=== PATIENT | male | born 1970 | race African-American/Black ===

== ENCOUNTER 2019-07-07 10:53 | Inpatient (IN) ==
[2019-07-07] MEDS ORDERED: SODIUM CHLORIDE 0.9% 500 ML IV STA (11:31)
[2019-07-07] MEDS ORDERED: SODIUM CHLORIDE 0.9% 1000ML 1,000 ML IV ONE ×3 (11:42→12:06)
[2019-07-07 11:47] LABS: Basophils # (auto) 0.02 K/uL (0-0.2); Basophils % (auto) 0.2 %; Eosinophils # (auto) 0.01 K/uL (0-0.5); Eosinophils % (auto) 0.1 %; Hematocrit (blood only) 43.7 % (42-52); Hemoglobin 14.2 g/dL (14.0-18.0); Immature Granulocytes # (auto) 0.02 K/uL (0.00-0.02); Immature Granulocytes % (auto) 0.2 %; Lymphocytes # (auto) 0.96 K/uL (1.2-3.4); Lymphocytes % (auto) 9.5 %; Mean Corpuscular Hemoglobin 25.7 pg (25-34); Mean Corpuscular Hgb Conc 32.5 g/dL (32-36); Mean Platelet Volume 12.3 fL (7.4-10.4); Monocytes # (auto) 0.74 K/uL (0.11-0.59); Monocytes % (auto) 7.3 %; Neutrophils # (auto) 8.34 K/uL (1.4-6.5); Neutrophils % (auto) 82.7 %; Platelet Count 235 K/uL (130-400); RDW Coefficient of Variation 15.1 % (11.5-14.5); RDW Standard Deviation 43.2 fL (36.4-46.3); Red Blood Count 5.53 M/uL (4.7-6.1); White Blood Count 10.09 K/uL (4.8-10.8)
[2019-07-07 11:47] LABS: iSTAT Blood Urea Nitrogen 42 mg/dl (7-18); iSTAT Carbon Dioxide 21 mEq/l (24-31); iSTAT Chloride 118 mEq/L (101-112); iSTAT Glucose > 700 mg/dl (70-99); iSTAT Hematocrit 45 % (42-52); iSTAT Hemoglobin 15.3 g/dl (14.0-18.0); iSTAT Ionized Calcium 1.13 mmol/l (1.12-1.32); iSTAT Potassium 5.2 mEq/L (3.3-5.0); iSTAT Sodium 154 mEq/L (135-144)
[2019-07-07 12:03] LABS: Albumin Globulin Ratio 1.1 (0.9-2); Albumin Level 4.1 gm/dl (3.4-5.0); BUN Creatinine Ratio 17.5 (10-20); Bilirubin,Total 0.7 mg/dl (0.2-1); Calcium 9.5 mg/dl (8.5-10.1); Creatinine Clr Calc Pharmacy 36.5 ml/min; Est GFR (Non-African American) 27.6; Globulin 3.7 gm/dl (2.5-4.0); Potassium 5.3 mmol/L (3.5-5.1); Total Protein 7.8 gm/dl (6.4-8.2)
[2019-07-07] MEDS ORDERED: DEXTROSE 50% 50 ML SYRINGE IV PRN (12:18)
[2019-07-07] MEDS ORDERED: HHS GOAL RANGE 250-350 mg/dl ONE (12:18)
[2019-07-07] MEDS ORDERED: ED DKA INSULIN DRIP ONE (12:18)
[2019-07-07] MEDS ORDERED: GLUCOSE 40% GEL 15 GM TUBE PO PRN (12:18)
[2019-07-07] MEDS ORDERED: GLUCOSE 10 TABS/TUBE PO PRN ×2 (12:18→15:10)
[2019-07-07] MEDS ORDERED: CARBOHYDRATES FOR HYPOGLYCEMIA PO PRN (12:18)
[2019-07-07] MEDS ORDERED: GLUCAGON FOR INJ 1 MG VIAL SQ PRN ×2 (12:18→15:10)
--- NOTE | 2019-07-07 12:19 | XRay Report ---
XR chest 1V portable CLINICAL HISTORY: DKA COMPARISON STUDY: No previous studies for comparison. FINDINGS: Lung volumes are normal. Lungs are clear. There is no pneumothorax or pleural effusion. Car diac size is normal. Mediastinal contours are normal. There is no evidence for pulmonary edema. IMPRESSION: No acute cardiopulmonary findings. ACT 112: Negative or not required by law. Electronically signed by: Paul Couch M.D. 07/07/2019 12:17 PM
[2019-07-07 12:20] LABS: Base Excess VBG -5.9 mEq/L; HCO3 VBG 22 mmol/L; PCO2 VBG 52 mmHg (38-50); PO2 VBG 29 mmHg; pH VBG 7.24 (7.36-7.41)
[2019-07-07 12:22] LABS: Oxygen Saturation VBG < 60.0 %
[2019-07-07 13:03] LABS: Beta-Hydroxybutyrate 94.06 mg/dl (0.2-2.81); Creatine Kinase 40 U/L (39-308); Creatine Kinase MB 1.2 ng/ml (0.5-3.6); Troponin I < 0.015 ng/ml (0-0.045)
[2019-07-07 13:12] LABS: Appearance Urine Clear (Clear); Bilirubin Urine Negative (Negative); Blood Urine Negative (Negative); Color Urine Yellow; Glucose Urine UA 3+ (Negative); Ketones Urine 2+ (Negative); Leukocyte Esterase Urine Negative (Negative); Nitrite Urine Negative (Negative); Protein Urine Negative (Negative); Specific Gravity Urine 1.028 (1.000-1.030); Urobilinogen Urine Negative (Negative)
[2019-07-07] MEDS ORDERED: NovoLIN-R BOLUS FROM BAG IV ONE (13:15)
--- NOTE | 2019-07-07 13:52 | Emergency Department Note ---
Entered by Gricelda Forte acting as a scribe for Edmond Carbone MD History of Present Illness General Chief complaint: Confusion Stated complaint: ams Time Seen by Provider: 07/07/19 11:37 Source: patient and other (ED nurse) History of Present Illness Onset (ago): hour(s) (earlier today) Location: head (confusion) Pain Consistency: + other (worsening) Exacerbated By: + other (falling out of bed) Associated symptoms: + denies other symptoms (head pain) and + other (hit head, elevated blood sugar level) The patient is a 48 year old M who presents to the Emergency Room with complaints of worsening confusion that started earlier today. The HPI was martha reed provided by the ED nurse. She states that the patient is a prisoner. She notes that the patient went to the [facility] today because he fell out of bed. The patient states that he hit his head. He denies that he is currently experiencing head pain. The ED nurse notes that the patient was found to have a blood sugar level of 700. She denies that the patient is on insulin. The patient also denies that he has a history of diabetes. He notes that he does not have any other pain. Home Medications Home Medications Medication Instructions Recorded Confirmed Type amlodipine 10 mg PO DAILY 07/07/19 07/07/19 History chlorthalidone 25 mg PO DAILY 07/07/19 07/07/19 History clozapine 50 mg PO DAILY 07/07/19 07/07/19 History clozapine 400 mg PO HS 07/07/19 07/07/19 History omeprazole 20 mg PO DAILY 07/07/19 07/07/19 History paroxetine HCl 20 mg PO DAILY 07/07/19 07/07/19 History valsartan 80 mg PO DAILY 07/07/19 07/07/19 History Allergies Allergy/AdvReac Type Severity Reaction Status Date / Time Penicillins Allergy Unknown Unknown Unverified 07/07/19 11:49 Past Med/Surg History Medical History No pertinent past medical history Family History Other No significant family history Social History Preferred Language: Portuguese Communication Ability: Effective Beliefs That Will Affect Care: None Current Living Situation Comment: [facility] Other Information That Helps Us Care for You: No Feels Safe at Home: Yes Smoking Status: Former smoker Hx Alcohol Use: No Hx Substance Use: No Review of Systems See HPI for pertinent positives & negatives. and A total of 10 systems reviewed and were otherwise negative Physical Exam Vital Signs Vital Signs - 24 hr 07/07/19 11:06 07/07/19 12:17 07/07/19 13:37 Temperature 36.7 C Temperature Source Oral Pulse Rate 110 H Pulse Rate [Right Finger] 105 H 104 H Respiratory Rate 20 20 20 Respiratory Effort / Characteristics Non-Labored Spontaneous Non-Labored Spontaneous Non-Labored Respiratory Depth Normal Normal Normal Blood Pressure 98/67 L Blood Pressure [Right Arm] 123/85 115/73 Blood Pressure Mean 77 Blood Pressure Mean [Right Arm] 97 87 Blood Pressure Position Lying Blood Pressure Position [Right Arm] Lying Lying Pulse Oximetry 96 100 95 Oxygen Delivery Method Room Air Room Air Room Air Sepsis Recent Fever Within 48 Hours No Sepsis Action Taken by Nursing No Action Required GENERAL: Awake, alert, well-appearing, in no acute distress HENT: Normocephalic, atraumatic. Oropharynx unremarkable. EYES: Normal conjunctiva. Sclera non-icteric. NECK: Supple. No nuchal rigidity. FROM. No JVD. RESPIRATORY: Clear to auscultation. CARDIAC: Regular rate, normal rhythm. Extremities warm and well perfused. Pulses equal. ABDOMEN: Soft, non-distended. No tenderness to palpation. No rebound or guarding. No masses. RECTAL: Deferred. MUSCULOSKELETAL: Chest examination reveals no tenderness. The back is symmetrical on inspection without obvious abnormality. There is no CVA tenderness to palpation. No joint edema. LOWER EXTREMITIES: Calves are equal size bilaterally and non-tender. No edema. No discoloration. NEURO: Normal sensorium. No sensory or motor deficits noted. SKIN: No rash or jaundice noted. Course Course 1138: The patient was evaluated in room C10. A complete history and physical exam was performed. 1235: I re-checked the patient. 1300: I reviewed the patient's case with Dr. Philippe, [facility] Hospitalist. She will evaluate the patient for further management. Administered Medications Amlodipine Besylate (Norvasc) 10 mg PO DAILY [facility] Stop: 08/07/19 08:59 Last Admin: 07/08/19 08:57 Dose: 10 mg Documented by: [id number] Chlorthalidone (Hygroton) 25 mg PO DAILY [facility] Stop: 08/07/19 08:59 Last Admin: 07/08/19 08:57 Dose: 25 mg Documented by: [id number] Clozapine (Clozaril) 50 mg PO DAILY [facility] Stop: 08/07/19 08:59 Last Admin: 07/08/19 08:57 Dose: 50 mg Documented by: [id number] Clozapine (Clozapine) 400 mg PO HS [facility] Stop: 08/06/19 20:59 Last Admin: 07/07/19 21:59 Dose: 400 mg Documented by: [id number] Heparin Sodium (Porcine) (Heparin Sodium (Porcine)) 5,000 units SQ Q12 [facility] Stop: 08/07/19 08:59 Last Admin: 07/08/19 08:51 Dose: 5,000 units Documented by: [id number] Cosigned by: [id number] Insulin Human Regular 250 (units/ Sodium Chloride) 250 mls @ 1.2 mls/hr IV .Q24H [facility]; Protocol Stop: 08/06/19 12:29 Last Titration: 07/08/19 09:07 Dose: 1.2 units/hr, 1.2 mls/hr Documented by: [id number] Cosigned by: [id number] Titration: 07/08/19 07:10 Dose: 1 units/hr, 1 mls/hr Documented by: [id number] Cosigned by: [id number] Titration: 07/08/19 06:09 Dose: 1 units/hr, 1 mls/hr Documented by: [id number] Cosigned by: [id number] Titration: 07/08/19 03:41 Dose: 0 units/hr, 0 mls/hr Documented by: [id number] Cosigned by: [id number] Titration: 07/07/19 22:36 Dose: 3.6 units/hr, 3.6 mls/hr Documented by: [id number] Cosigned by: [id number] Titration: 07/07/19 19:33 Dose: 3 units/hr, 3 mls/hr Documented by: [id number] Cosigned by: [id number] Titration: 07/07/19 19:11 Dose: 0 units/hr, 0 mls/hr Documented by: [id number] Cosigned by: [id number] Titration: 07/07/19 18:07 Dose: 5.3 units/hr, 5.3 mls/hr Documented by: [id number] Cosigned by: [id number] Titration: 07/07/19 17:04 Dose: 6.6 units/hr, 6.6 mls/hr Documented by: [id number] Cosigned by: [id number] Titration: 07/07/19 16:14 Dose: 6.6 units/hr, 6.6 mls/hr Documented by: [id number] Cosigned by: [id number] Titration: 07/07/19 15:06 Dose: 8.3 units/hr, 8.3 mls/hr Documented by: [id number] Cosigned by: [id number] Admin: 07/07/19 13:56 Dose: 8.3 units/hr, 8.3 mls/hr Documented by: [id number] Cosigned by: [id number] Insulin Aspart (Novolog Flexpen) 0 units SC ACHS [facility] Stop: 08/06/19 20:59 Last Admin: 07/08/19 09:09 Dose: Not Given Documented by: [id number] Cosigned by: [id number] Admin: 07/07/19 21:59 Dose: 3 units Documented by: [id number] Cosigned by: [id number] Insulin Aspart (Novolog Flexpen) 0 units SC ACHS [facility] Stop: 08/07/19 07:29 Last Admin: 07/08/19 09:05 Dose: 3 units Documented by: [id number] Cosigned by: [id number] Paroxetine HCl (Paxil) 20 mg PO DAILY [facility] Stop: 08/07/19 08:59 Last Admin: 07/08/19 08:57 Dose: 20 mg Documented by: [id number] Valsartan (Diovan) 80 mg PO DAILY [facility] Stop: 08/07/19 08:59 Last Admin: 07/08/19 08:57 Dose: 80 mg Documented by: [id number] Discontinued Medications Sodium Chloride (Nss) 500 mls @ 999 mls/hr IV .Q31M STA Stop: 07/07/19 12:01 Last Admin: 07/07/19 11:43 Dose: Not Given Documented by: [id number] Sodium Chloride (Nss 1000ml) 1,000 mls @ 200 mls/hr IV .Q5H ONE Stop: 07/07/19 17:00 Last Admin: 07/07/19 11:43 Dose: Not Given Documented by: [id number] Sodium Chloride (Nss 1000ml) 1,000 mls @ 999 mls/hr IV .Q1H1M ONE Stop: 07/07/19 12:42 Last Infusion: 07/07/19 12:58 Dose: 0 mls/hr Documented by: [id number] Admin: 07/07/19 11:43 Dose: 999 mls/hr Documented by: [id number] Sodium Chloride (Nss 1000ml) 1,000 mls @ 999 mls/hr IV .Q1H1M ONE Stop: 07/07/19 13:06 Last Infusion: 07/07/19 13:22 Dose: 0 mls/hr Documented by: [id number] Admin: 07/07/19 12:19 Dose: 999 mls/hr Documented by: [id number] Sodium Chloride (Nss 1000ml) 1,000 mls @ 125 mls/hr IV .Q8H [facility] Stop: 08/06/19 15:09 Last Admin: 07/07/19 15:57 Dose: Not Given Documented by: [id number] Sodium Chloride (1/2 Nss) 1,000 mls @ 150 mls/hr IV .Q6H40M [facility] Stop: 08/06/19 15:59 Last Infusion: 07/07/19 16:49 Dose: 0 mls/hr Documented by: [id number] Infusion: 07/07/19 16:39 Dose: 150 mls/hr Documented by: [id number] Admin: 07/07/19 16:16 Dose: 100 mls/hr Documented by: [id number] Dextrose (D5w) 1,000 mls @ 75 mls/hr IV .[id number] [facility] Stop: 08/06/19 16:59 Last Admin: 07/08/19 00:20 Dose: 75 mls/hr Documented by: [id number] Infusion: 07/08/19 00:16 Dose: 75 mls/hr Documented by: [id number] Admin: 07/07/19 17:03 Dose: 150 mls/hr Documented by: [id number] Influenza Virus Vaccine Quadrival (Flucelvax Quad Vaccine) 0.5 ml IM .ONCE ONE Stop: 07/07/19 15:46 Last Admin: 07/08/19 08:53 Dose: Not Given Documented by: [id number] Insulin Aspart (Novolog Flexpen) 0 units SC ACHS [facility] Stop: 08/06/19 16:29 Last Admin: 07/07/19 16:15 Dose: Not Given Documented by: [id number] Insulin Aspart (Novolog Flexpen) 0 units SC TODAY@0000,0400 [facility] Stop: 07/08/19 04:01 Last Admin: 07/08/19 03:41 Dose: Not Given Documented by: [id number] Cosigned by: [id number] Admin: 07/08/19 00:33 Dose: Not Given Documented by: [id number] Insulin Glargine (Lantus Solostar Pen) 15 units SC NOW ONE; Protocol Stop: 07/07/19 20:16 Last Admin: 07/07/19 22:00 Dose: 15 units Documented by: [id number] Cosigned by: [id number] Insulin Human Regular (Novolin R Bolus From Bag) 8 units IV ONE ONE Stop: 07/07/19 13:16 Last Admin: 07/07/19 13:58 Dose: 8 units Documented by: [id number] Cosigned by: [id number] Miscellaneous (Insulin Protocol Hhs Goal Range) 1 ea N/A ONE ONE Stop: 07/07/19 12:19 Last Admin: 07/07/19 13:58 Dose: 1 ea Documented by: [id number] Miscellaneous Information (Dc Iv Insulin Infusion) 1 ea N/A Q1H [facility] Stop: 07/07/19 23:01 Last Admin: 07/08/19 03:54 Dose: 1 ea Documented by: [id number] Admin: 07/08/19 03:54 Dose: 1 ea Documented by: [id number] Admin: 07/08/19 03:52 Dose: 1 ea Documented by: [id number] Critical Care Time I have personally spent greater than 30 minutes of critical care time in the direct management of this patient. This includes bedside care, interpretation of diagnostic studies, and testing, discussion with consultants, patient, and family members, and other required patient management activities. This 30 minutes is in excess of all separately billable procedures. Medical Decision Making Differential Diagnosis Differential diagnosis: Etiologies such as metabolic, infection, hypo/hyperglycemia, electrolyte abnormalities, cardiac sources, intracerebral event, toxicologic, neurologic, as well as others were entertained. Medical Records Attestation: I reviewed the patient's medical records. Home Medications Current Medication List: was personally reviewed by me Laboratory Data Attestation: I reviewed the patient's lab results. Result diagrams: 07/08/19 03:36 07/08/19 07:02 Lab Results 07/07/19 07/07/1919 Range/Units 11:15 11:15 11:15 WBC 10.09 (4.8-10.8) K/uL RBC 5.53 (4.7-6.1) M/uL Hgb 14.2 (14.0-18.0) g/dL POC Hgb (14.0-18.0) g/dl Hct 43.7 (42-52) % POC Hct (42-52) % MCV 79.0 L (80-100) fL MCH 25.7 (25-34) pg MCHC 32.5 (32-36) g/dL RDW Std Deviation 43.2 (36.4-46.3) fL RDW Coeff of Dora 15.1 H (11.5-14.5) % Plt Count 235 (130-400) K/uL MPV 12.3 H (7.4-10.4) fL Immature Gran % (Auto) 0.2 % Neut % (Auto) 82.7 % Lymph % (Auto) 9.5 % Cochran % (Auto) 7.3 % Eos % (Auto) 0.1 % Baso % (Auto) 0.2 % Immature Gran # (Auto) 0.02 (0.00-0.02) K/uL Neut # (Auto) 8.34 H (1.4-6.5) K/uL Lymph # (Auto) 0.96 L (1.2-3.4) K/uL Cochran # (Auto) 0.74 H (0.11-0.59) K/uL Eos # (Auto) 0.01 (0-0.5) K/uL Baso # (Auto) 0.02 (0-0.2) K/uL VBG pH (7.36-7.41) VBG pCO2 (38-50) mmHg VBG pO2 mmHg VBG HCO3 mmol/L VBG O2 Saturation % VBG Base Excess mEq/L Barometric Pressure mm/Hg POC Sodium (135-144) mEq/L Sodium 153 H (136-145) mmol/L POC Potassium (3.3-5.0) mEq/L Potassium 5.3 H (3.5-5.1) mmol/L POC Chloride (101-112) mEq/L Chloride 115 H (98-107) mmol/L Carbon Dioxide 20 L (21-32) mmol/L POC Total CO2 (24-31) mEq/l Anion Gap 17.0 H (3-11) POC Anion Gap (16-25) mmol/L POC BUN (7-18) mg/dl BUN 46 H (7-18) mg/dl Creatinine 2.61 H (0.6-1.4) mg/dl POC Creatinine (0.6-1.3) mg/dl Est Cr Clr Drug Dosing 36.5 ml/min Est GFR ( Amer) 32.0 Est GFR (Non-Af Amer) 27.6 BUN/Creatinine Ratio 17.5 (10-20) Glucose 827 H* (70-99) mg/dl POC Glucose (other) (70-99) mg/dl Estimat Average Glucose TNP Hemoglobin A1c TNP Hgb A1c Pathologist Com Calcium 9.5 (8.5-10.1) mg/dl POC Ioniz Calcium Jose Luis (1.12-1.32) mmol/l Total Bilirubin 0.7 (0.2-1) mg/dl AST 3 L (15-37) U/L ALT 17 (12-78) U/L Alkaline Phosphatase 128 H (45-117) U/L Total Creatine Kinase (39-308) U/L CK-MB (CK-2) (0.5-3.6) ng/ml CK/CKMB % Calc (0-3.0) Troponin I (0-0.045) ng/ml Total Protein 7.8 (6.4-8.2) gm/dl Albumin 4.1 (3.4-5.0) gm/dl Globulin 3.7 (2.5-4.0) gm/dl Albumin/Globulin Ratio 1.1 (0.9-2) Beta-Hydroxybutyric Acd (0.2-2.81) mg/dl Specimen Hemolysis Urine Color Urine Appearance (Clear) Urine pH (4.5-7.5) Ur Specific [place] (1.000-1.030) Urine Protein (Negative) Urine Glucose (UA) (Negative) Urine Ketones (Negative) Urine Blood (Negative) Urine Nitrite (Negative) Urine Bilirubin (Negative) Urine Urobilinogen (Negative) Ur Leukocyte Esterase (Negative) 07/07/19 07/07/19 07/07/19 Range/Units 11:30 11:59 12:05 WBC (4.8-10.8) K/uL RBC (4.7-6.1) M/uL Hgb (14.0-18.0) g/dL POC Hgb 15.3 (14.0-18.0) g/dl Hct (42-52) % POC Hct 45 (42-52) % MCV (80-100) fL MCH (25-34) pg MCHC (32-36) g/dL RDW Std Deviation (36.4-46.3) fL RDW Coeff of Dora (11.5-14.5) % Plt Count (130-400) K/uL MPV (7.4-10.4) fL Immature Gran % (Auto) % Neut % (Auto) % Lymph % (Auto) % Cochran % (Auto) % Eos % (Auto) % Baso % (Auto) % Immature Gran # (Auto) (0.00-0.02) K/uL Neut # (Auto) (1.4-6.5) K/uL Lymph # (Auto) (1.2-3.4) K/uL Cochran # (Auto) (0.11-0.59) K/uL Eos # (Auto) (0-0.5) K/uL Baso # (Auto) (0-0.2) K/uL VBG pH 7.24 L (7.36-7.41) VBG pCO2 52 H (38-50) mmHg VBG pO2 29 mmHg VBG HCO3 22 mmol/L VBG O2 Saturation < 60.0 % VBG Base Excess -5.9 mEq/L Barometric Pressure 739.6 mm/Hg POC Sodium 154 H (135-144) mEq/L Sodium (136-145) mmol/L POC Potassium 5.2 H (3.3-5.0) mEq/L Potassium (3.5-5.1) mmol/L POC Chloride 118 H (101-112) mEq/L Chloride (98-107) mmol/L Carbon Dioxide (21-32) mmol/L POC Total CO2 21 L (24-31) mEq/l Anion Gap (3-11) POC Anion Gap 22.0 (16-25) mmol/L POC BUN 42 H (7-18) mg/dl BUN (7-18) mg/dl Creatinine (0.6-1.4) mg/dl POC Creatinine 2.0 H (0.6-1.3) mg/dl Est Cr Clr Drug Dosing ml/min Est GFR ( Amer) Est GFR (Non-Af Amer) BUN/Creatinine Ratio (10-20) Glucose (70-99) mg/dl POC Glucose (other) > 700 H* (70-99) mg/dl Estimat Average Glucose Hemoglobin A1c Hgb A1c Pathologist Com Calcium (8.5-10.1) mg/dl POC Ioniz Calcium Jose Luis 1.13 (1.12-1.32) mmol/l Total Bilirubin (0.2-1) mg/dl AST (15-37) U/L ALT (12-78) U/L Alkaline Phosphatase (45-117) U/L Total Creatine Kinase 40 (39-308) U/L CK-MB (CK-2) 1.2 (0.5-3.6) ng/ml CK/CKMB % Calc 3.0 (0-3.0) Troponin I < 0.015 (0-0.045) ng/ml Total Protein (6.4-8.2) gm/dl Albumin (3.4-5.0) gm/dl Globulin (2.5-4.0) gm/dl Albumin/Globulin Ratio (0.9-2) Beta-Hydroxybutyric Acd 94.06 H (0.2-2.81) mg/dl Specimen Hemolysis Urine Color Urine Appearance (Clear) Urine pH (4.5-7.5) Ur Specific [place] (1.000-1.030) Urine Protein (Negative) Urine Glucose (UA) (Negative) Urine Ketones (Negative) Urine Blood (Negative) Urine Nitrite (Negative) Urine Bilirubin (Negative) Urine Urobilinogen (Negative) Ur Leukocyte Esterase (Negative) 07/07/19 Range/Units 13:00 WBC (4.8-10.8) K/uL RBC (4.7-6.1) M/uL Hgb (14.0-18.0) g/dL POC Hgb (14.0-18.0) g/dl Hct (42-52) % POC Hct (42-52) % MCV (80-100) fL MCH (25-34) pg MCHC (32-36) g/dL RDW Std Deviation (36.4-46.3) fL RDW Coeff of Dora (11.5-14.5) % Plt Count (130-400) K/uL MPV (7.4-10.4) fL Immature Gran % (Auto) % Neut % (Auto) % Lymph % (Auto) % Cochran % (Auto) % Eos % (Auto) % Baso % (Auto) % Immature Gran # (Auto) (0.00-0.02) K/uL Neut # (Auto) (1.4-6.5) K/uL Lymph # (Auto) (1.2-3.4) K/uL Cochran # (Auto) (0.11-0.59) K/uL Eos # (Auto) (0-0.5) K/uL Baso # (Auto) (0-0.2) K/uL VBG pH (7.36-7.41) VBG pCO2 (38-50) mmHg VBG pO2 mmHg VBG HCO3 mmol/L VBG O2 Saturation % VBG Base Excess mEq/L Barometric Pressure mm/Hg POC Sodium (135-144) mEq/L Sodium (136-145) mmol/L POC Potassium (3.3-5.0) mEq/L Potassium (3.5-5.1) mmol/L POC Chloride (101-112) mEq/L Chloride (98-107) mmol/L Carbon Dioxide (21-32) mmol/L POC Total CO2 (24-31) mEq/l Anion Gap (3-11) POC Anion Gap (16-25) mmol/L POC BUN (7-18) mg/dl BUN (7-18) mg/dl Creatinine (0.6-1.4) mg/dl POC Creatinine (0.6-1.3) mg/dl Est Cr Clr Drug Dosing ml/min Est GFR ( Amer) Est GFR (Non-Af Amer) BUN/Creatinine Ratio (10-20) Glucose (70-99) mg/dl POC Glucose (other) (70-99) mg/dl Estimat Average Glucose Hemoglobin A1c Hgb A1c Pathologist Com Calcium (8.5-10.1) mg/dl POC Ioniz Calcium Jose Luis (1.12-1.32) mmol/l Total Bilirubin (0.2-1) mg/dl AST (15-37) U/L ALT (12-78) U/L Alkaline Phosphatase (45-117) U/L Total Creatine Kinase (39-308) U/L CK-MB (CK-2) (0.5-3.6) ng/ml CK/CKMB % Calc (0-3.0) Troponin I (0-0.045) ng/ml Total Protein (6.4-8.2) gm/dl Albumin (3.4-5.0) gm/dl Globulin (2.5-4.0) gm/dl Albumin/Globulin Ratio (0.9-2) Beta-Hydroxybutyric Acd (0.2-2.81) mg/dl Specimen Hemolysis Urine Color Yellow Urine Appearance Clear (Clear) Urine pH 5.0 (4.5-7.5) Ur Specific [place] 1.028 (1.000-1.030) Urine Protein Negative (Negative) Urine Glucose (UA) 3+ H (Negative) Urine Ketones 2+ H (Negative) Urine Blood Negative (Negative) Urine Nitrite Negative (Negative) Urine Bilirubin Negative (Negative) Urine Urobilinogen Negative (Negative) Ur Leukocyte Esterase Negative (Negative) Imaging Data Radiologist's Impression: Radiology results as stated below per my review and the radiologist's interpretation: XR chest 1V portable CLINICAL HISTORY: DKA COMPARISON STUDY: No previous studies for comparison. FINDINGS: Lung volumes are normal. Lungs are clear. There is no pneumothorax or pleural effusion. Cardiac size is normal. Mediastinal contours are normal. There is no evidence for pulmonary edema. IMPRESSION: No acute cardiopulmonary findings. ACT 112: Negative or not required by law. Electronically signed by: Paul Couch M.D. 07/07/2019 12:17 PM ECG Data Attestation: I personally reviewed and interpreted this ECG as follows: Indication: + altered mental status (confusion) Rate (beats per minute): 106 Rhythm: + sinus tachycardia ECG ST segments: no ST depression and no ST elevation ECG Findings: + Other (QTc 486) Blood Pressure Blood Pressure Findings: Elevated blood pressure Blood Pressure Disposition: further management by hospitalist SEAN Valentino This is a 48-year-old male who presents the emergency department complaining of high blood sugar. The patient himself has no complaints. His blood sugar was found to be over 800 and he appears to be in DKA. He was given 3 L of fluid h ere in the emergency department and started on an insulin drip. I did discuss the case with the hospitalist service who did agree to admit the patient. Patient was in agreement the treatment plan Impression & Plan Acute kidney injury, Diabetic ketoacidosis, Schizophrenia, Hypernatremia, Hypertension Discharge Plan Visit Data *Final* Discharge Date/Time: 07/07/19 15:13 Chief Complaint: Confusion Stated Complaint: ams ED Provider: Edmond Carbone Discharge Problem: Acute kidney injury, Diabetic ketoacidosis, Schizophrenia, Hypernatremia, Hypertension Patient Disposition: Admitted As Inpatient Discharge Instructions Interventions: ED Discharge Assessment Last Done: 07/07/19 15:13 Discharge Problem: Diabetic ketoacidosis Qualifiers: Diabetes mellitus type: type 1 Diabetes mellitus complication detail: without coma Qualified Code(s): E10.10 - Type 1 diabetes mellitus with ketoacidosis without coma Schizophrenia Qualifiers: Schizophrenia type: unspecified Qualified Code(s): F20.9 - Schizophrenia, uns pecified Hypertension Qualifiers: Hypertension type: unspecified Qualified Code(s): I10 - Essential (primary) h ypertension The scribe's documentation has been prepared under my direction and personally reviewed by me in its entirety. I confirm that the note above accurately reflects all work, treatment, procedures, and medical decision making performed by me.
[2019-07-07] MEDS: INSULIN REGULAR 250 UNITS in SODIUM CHLORIDE 0.9% 247.5 ML IV SCH (13:56)
--- NOTE | 2019-07-07 14:24 | History & Physical Report ---
Date of Service July 07, 2019 Assessment & Plan (1) Diabetic ketoacidosis: Admit to PCU on telemetry Started D5 water and insulin drip-since patient has hyponatremia which is difficult to control with normal saline or half-normal saline. BMP every 4 Monitor potassium and electrolytes replenish as needed Close follow-up with monitoring and Accu-Cheks every 1 hour and when patient reaches glycemic control of 250 then will continue before meals and at bedtime And weaning of insulin drip and transitioning basal insulin and sliding scale insulin. DVT prophylaxis heparin 5000 units every 12. Present on Admission?: Yes (2) Hypernatremia: Continue monitoring closely. Since patient has severe hyponatremia and dehydration Continue D5 water Monitor for seizure BMP every 4 hours Readjust D5 water rate as needed to correct hypernatremia Present on Admission?: Yes (3) Schizophrenia: Continue home medicine clozapine 400 mg p.o. nightly, clozapine 50 mg p.o. daily, paroxetine 20 mg p.o. daily. Will consult psych because patient hallucinations are still present and confusion. Present on Admission?: Yes (4) Hypertension: Continue home medicine amlodipine 10 mg p.o. daily, chlorthalidone 25 mg p.o. daily, valsartan 80 mg p.o. daily. Present on Admission?: Yes (5) Acute kidney injury: Avoid nephrotoxic agent. Hold omeprazole while patient has acute kidney injury. Monitor daily creatinine and GFR. Creatinine now 2/GFR 19.4 Present on Admission?: Yes History of Present Illness Chief Complaint: Polydipsia polyuria and fall Primary Care Provider: [facility] Patient is a 48 years old male prisoner with past medical history of hypertension, schizophrenia, who was brought to the emergency room status post fall in the present, acute confusion. Patient denied any head injury or headache. When patient was checked to the emergency room his sugar level was 700 and he had ketones in urine. Patient denies that potassium. Patient denies having history of diabetes. Patient denies fever, chills, chest pain, shortness of breath, abdominal pain, frequency, urgency. 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 Patient is not oriented in time and place. Labs are reviewed which shows WBCs 10.09, hemoglobin 14.2, hematocrit 43.7, platelets 235, VBG pH 7.24, PCO2 52, VBG PO2 29, VBG HCO3 22 O2 saturation less than 60. Sodium 153, potassium 5.3, chloride 115, CO2 20, anion gap 17, GFR 27.6, hydroxybutyrate 94.206 urine yellow 3+ glucose and 2+ ketones. Drug screen negative. CT of the head: No acute intracranial finding, no calvarial fracture, mild white matter hypodensities which are nonspecific but statistically reflect small vessel disease. Chest x-ray no acute cardiopulmonary findings. Decision was made to admit patient to PCU on telemetry for DKA with hyponatremia. Allergies Allergy/AdvReac Type Severity Reaction Status Date / Time Penicillins Allergy Unknown Unknown Unverified 07/07/19 11:49 Home Medications Home Medications Medication Instructions Recorded Confirmed Type amlodipine 10 mg PO DAILY 07/07/19 07/07/19 History chlorthalidone 25 mg PO DAILY 07/07/19 07/07/19 History clozapine 50 mg PO DAILY 07/07/19 07/07/19 History clozapine 400 mg PO HS 07/07/19 07/07/19 History omeprazole 20 mg PO DAILY 07/07/19 07/07/19 History paroxetine HCl 20 mg PO DAILY 07/07/19 07/07/19 History valsartan 80 mg PO DAILY 07/07/19 07/07/19 History Past Med/Surg History Medical History No pertinent past medical history Family History Other No significant family history Social History Preferred Language: Hebrew Communication Ability: Effective Beliefs That Will Affect Care: None Current Living Situation Comment: [email or web address] Other Information That Helps Us Care for You: No Feels Safe at Home: Yes Smoking Status: Former smoker Hx Alcohol Use: No Hx Substance Use: No Review of Systems Review of Systems: All systems reviewed & are unremarkable except as noted in HPI & below Physical Exam Constitutional: WD/WN, vitals as above well developed and + ill appearing Eyes: PERRL, conjunctivae normal, anicteric sclerae ENMT: external ear and nose normal, oropharynx normal Neck: trachea midline, no thyromegaly Respiratory: normal respiratory effort, lungs clear to auscultation Cardiovascular: RRR, no murmur, no edema Gastrointestinal (Abdomen): normal bowel sounds, soft, nontender, no hepatosplenomegaly Musculoskeletal: no cyanosis or clubbing, extremities motor strength 5/5 Skin: no rashes, warm and dry Neurologic: patellar DTR's 2+ bilat, sensation intact Psychiatric: Orientation: oriented to person Affect: + anxious affect and + irritable affect Thought Process: + flight of ideas Suicidal Thoughts: denies suicidal thoughts Homicidal Thoughts: denies homicidal thoughts Judgement: + limited judgement Lymphatic: no cervical or axillary lymphadenopathy Results & Data Vital Signs (Past 12 Hours) Vital Signs Temp Pulse Pulse Resp BP BP Pulse Ox 07/07/19 13:37 104 H 20 115/73 95 07/07/19 12:17 105 H 20 123/85 100 07/07/19 11:06 36.7 C 110 H 20 98/67 L 96 Code Status & VTE Plan Code Status Full code VTE Prophylaxis Plan VTE Prophylaxis will be ordered: Yes PG Care Time/CCT Total # of Minutes Spent Total Time Spent with Patient: Total time spent is greater than 50% in coordination of care (as documented) at patient's floor/unit and/or counseling patient:
--- NOTE | 2019-07-07 14:33 | CT Scan Report ---
CT OF THE HEAD WITHOUT CONTRAST CLINICAL HISTORY: fall COMPARISON STUDY: No previous studies for comparison. CT DOSE: 1440.45 mGy.cm TECHNIQUE: Helical axial images of the head were obtained without IV contrast. Automated exposure con trol was utilized for the study. A dose lowering technique was utilized adhering to the principles o f ALARA. FINDINGS: No acute intracranial hemorrhage, midline shift or mass effect is present. The ventricular system is unremarkable. The basilar cisterns are patent. No extra-axial collections are present. Ther e are no findings to suggest acute dural sinus thrombosis or acute territorial infarct. No significan t calvarial abnormalities are present. Visualized portions of the sinuses and mastoid air cells are c lear. There are mild white matter hypodensities. IMPRESSION: 1. No acute intracranial findings. 2. No calvarial fracture. 3. Mild white matter hypodensities which are nonspecific but statistically reflect small vessel disea se. ACT 112: Negative or not required by law. Electronically signed by: Paul Couch M.D. 07/07/2019 2:31 PM
[2019-07-07] MEDS ORDERED: SODIUM CHLORIDE 0.9% 1000ML 1,000 ML IV SCH (15:10)
[2019-07-07] MEDS ORDERED: ACETAMINOPHEN 325 MG TAB PO PRN (15:10)
[2019-07-07] MEDS ORDERED: ALUMINUM/MAGNESIUM SUSP 30 ML UDC PO PRN (15:10)
[2019-07-07] MEDS ORDERED: ONDANSETRON INJ 2 MG/ML 2 ML VIAL IV PRN (15:10)
[2019-07-07] MEDS ORDERED: POLYETHYLENE (MIRALAX) 17 GM PACK PO PRN (15:10)
[2019-07-07] MEDS ORDERED: MAGNESIUM HYDROXIDE SUSP 30 ML UDC PO PRN (15:10)
[2019-07-07] MEDS ORDERED: PHARMACY GLYCEMIC MGMT CONSULT PRN (15:20)
[2019-07-07] MEDS ORDERED: SODIUM CHLORIDE 0.45 % 1,000 ML IV SCH (16:00)
[2019-07-07 16:03] LABS: BUN Creatinine Ratio 19.4 (10-20); Calcium 9.5 mg/dl (8.5-10.1); Creatinine Clr Calc Pharmacy 43.9 ml/min; Est GFR (Non-African American) 34.5; Potassium 4.4 mmol/L (3.5-5.1)
[2019-07-07 16:04] LABS: Thyroid Stimulating Hormone 0.205 uIu/ml (0.300-4.500)
[2019-07-07] MEDS ORDERED: INSULIN ASPART 100 UNITS/ML 3 ML PEN SC SCH (16:30)
[2019-07-07 16:41] LABS: Beta-Hydroxybutyrate 73.68 mg/dl (0.2-2.81)
[2019-07-07] MEDS: DEXTROSE 5% 1,000 ML IV SCH (17:03)
[2019-07-07 17:53] LABS: Amphetamines+Metham, Urine Neg (Neg); Barbiturates, Urine Neg (Neg); Benzodiazepine, Urine Neg (Neg); Cocaine, Urine Neg (Neg); MDMA (Ecstacy), Urine Neg (Neg); Methadone, Urine Neg (Neg); Opiate, Urine Neg (Neg); Phencyclidine, Urine Neg (Neg)
[2019-07-07 19:13] LABS: BUN Creatinine Ratio 20.8 (10-20); Calcium 9.4 mg/dl (8.5-10.1); Creatinine Clr Calc Pharmacy 50.6 ml/min; Est GFR (African American) 47.5; Potassium 4.1 mmol/L (3.5-5.1)
[2019-07-07] MEDS ORDERED: INSULIN GLARGINE SOLOSTAR 100 UNITS/ML 3 ML PEN SC ONE (20:15)
[2019-07-07] MEDS ORDERED: cloZAPine 100 MG TAB PO SCH (21:00)
[2019-07-07] MEDS: INSULIN ASPART 100 UNITS/ML 3 ML PEN SC SCH (21:59)
[2019-07-07 23:53] LABS: BUN Creatinine Ratio 22.3 (10-20); Calcium 8.9 mg/dl (8.5-10.1); Creatinine Clr Calc Pharmacy 54.1 ml/min; Est GFR (African American) 51.5; Est GFR (Non-African American) 44.4; Potassium 4.5 mmol/L (3.5-5.1)
[2019-07-08 00:08] LABS: Beta-Hydroxybutyrate 7.22 mg/dl (0.2-2.81)
[2019-07-08] MEDS: DEXTROSE 5% 1,000 ML IV SCH ×2 (00:20→19:45)
[2019-07-08] MEDS: INSULIN ASPART 100 UNITS/ML 3 ML PEN SC SCH ×7 (00:33→22:03)
[2019-07-08 03:51] LABS: Basophils # (auto) 0.02 K/uL (0-0.2); Basophils % (auto) 0.2 %; Eosinophils # (auto) 0.35 K/uL (0-0.5); Eosinophils % (auto) 3.8 %; Hematocrit (blood only) 42.3 % (42-52); Hemoglobin 13.9 g/dL (14.0-18.0); Immature Granulocytes # (auto) 0.02 K/uL (0.00-0.02); Immature Granulocytes % (auto) 0.2 %; Lymphocytes # (auto) 2.95 K/uL (1.2-3.4); Lymphocytes % (auto) 32.2 %; Mean Corpuscular Hemoglobin 25.6 pg (25-34); Mean Corpuscular Hgb Conc 32.9 g/dL (32-36); Mean Platelet Volume 11.5 fL (7.4-10.4); Monocytes # (auto) 0.78 K/uL (0.11-0.59); Monocytes % (auto) 8.5 %; Neutrophils # (auto) 5.03 K/uL (1.4-6.5); Neutrophils % (auto) 55.1 %; Platelet Count 226 K/uL (130-400); RDW Standard Deviation 42.5 fL (36.4-46.3); Red Blood Count 5.42 M/uL (4.7-6.1); White Blood Count 9.15 K/uL (4.8-10.8)
[2019-07-08] MEDS: DC IV INSULIN INFUSION 1 EA DEVI SCH ×2 (03:52→03:54)
[2019-07-08 04:17] LABS: Albumin Level 3.7 gm/dl (3.4-5.0); BUN Creatinine Ratio 22.9 (10-20); Bilirubin,Total 0.5 mg/dl (0.2-1); Calcium 8.9 mg/dl (8.5-10.1); Creatinine Clr Calc Pharmacy 61.8 ml/min; Est GFR (African American) 60.5; Est GFR (Non-African American) 52.2; Globulin 3.6 gm/dl (2.5-4.0); Total Protein 7.3 gm/dl (6.4-8.2)
[2019-07-08 07:53] LABS: BUN Creatinine Ratio 23.1 (10-20); Calcium 9.3 mg/dl (8.5-10.1); Creatinine Clr Calc Pharmacy 63.9 ml/min; Est GFR (Non-African American) 54.3
[2019-07-08] MEDS: HEPARIN SOD 5,000 UNIT/0.5 ML VIAL SQ SCH ×2 (08:51→19:32)
[2019-07-08] MEDS: PARoxetine HCl 20 MG TAB PO SCH (08:57)
[2019-07-08] MEDS: AMLODIPINE BESYLATE 5 MG TAB PO SCH (08:57)
[2019-07-08] MEDS: VALSARTAN 80 MG TAB PO SCH (08:57)
[2019-07-08] MEDS: cloZAPine 25 MG TAB PO SCH (08:57)
[2019-07-08] MEDS ORDERED: CHLORTHALIDONE 25 MG TAB PO SCH (09:00)
[2019-07-08] MEDS ORDERED: PANTOprazole 40 MG TAB PO SCH (09:00)
--- NOTE | 2019-07-08 09:10 | Hospitalist Progress Note ---
Date of Service July 08, 2019 Assessment & Plan (1) Diabetic ketoacidosis: 89 y/o M with PMH of hypertension, schizophrenia, who was brought to the emergency room status post fall and confusion in [facility]; previously well controlled on antipsychotics and has had no changes to his medications DKA: - presented with glucose of 700, in the presence of ketoacidemia, and bicarb of 20 - no prior history of DM; ordered C-peptide for determination of baseline insulin production as source of DKA progression remains uncertain at this time - monitor potassium and electrolytes replenish as needed, currently receiving 20meq potassium in IV fluids - weaning of insulin drip and transitioning basal insulin and sliding scale insulin - continue to monitor for regression as we resolve hyperglycemia Hypernatremia: - Na on admission 155, trended up to 161 this AM; temporarily increased D5W rate to 250ml/hr which saw drop to 155, subsequently decreased rate to 125; discontinued D5W after Na trended down to 146 at 1600 - starting NSS at 125ml/Hr - BMP every 4 hrs Schizphrenia: - continue home medicine clozapine 400 mg p.o. nightly, clozapine 50 mg p.o. daily - paroxetine 20 mg p.o. daily. - Psych consulted: appreciate recs Hypertension: Continue home medicine amlodipine 10 mg p.o. daily, chlorthalidone 25 mg p.o. daily, valsartan 80 mg p.o. daily. SULY: - on admission Cr. 1.8 trending down to 1.47 today - continue to monitor as hydration improves (2) Hypernatremia: (3) Schizophrenia: (4) Hypertension: (5) Acute kidney injury: Supervising Physician Co-Signing Physician Notes I personally examined the patient and verified all gonzalez points of history and exam, discussed case, and agree with decision making with Dr Yeboah. feeling ok - "just a little dizzy" - guard notes he was also concerned about muscle twitches. no other complaints. in asking duration of sx - pt relates generally feeling unwell relating back to about november; urinary increase from about december or january. vitals noted nad heent nc at mmm breathing unlabored no pallor or icterus. no focal neuro deficits. hyperglycemic dehydration/new onset diabetes/hypernatremia/SULY - continue insulin gtt and titrate mealtime insulin; hold chlorthalidone for now; continue fluids - titrate based on Na/clinical response. continue to follow closely -?DM1 vs DM2 --> unclear. certainly this will be of significance in his long- term f/u and management - presentation without profound metabolic acidosis favors insulin resistance; lack of significant other dysmetabolic features favors insulin deficiency. Cpeptide sent to hopefully help clarify. May be related to clozaril - but sounds to be doing fairly well on this med - and therefore if sugars able to be managed in spite of clozaril, it might be in his best interest to continue psych meds even if it means having to treat DM. would defer to psych more in this regard, though, if there are other viable options for his schizophrenia. DVT proph - heparin SQ otherwise as above Subjective Patient feels fine this morning, reports that he just felt "a little off" the last couple days and was peeing all the time, but did not know what else was going on, thought it was because he kept drinking water and was always thirsty. Has continued the urge to pee while he is here but feels closer to his normal than he was when he was at [facility]. Review of Systems Constitutional: no fever, no chills and no sweats Eyes: no diplopia, no discharge and no loss of peripheral vision Respiratory: no cough, no dyspnea and no wheezing Gastrointestinal: no abdominal pain, no nausea and no vomiting Genitourinary: no urinary frequency, no urinary hesitancy and no urinary incontinence Physical Exam Constitutional: well developed and well nourished Eyes: PERRL, conjunctivae normal, anicteric sclerae Respiratory: normal respiratory effort, lungs clear to auscultation Auscultation: no crackles, no rales and no wheezes Cardiovascular: Rate/Rhythm: regular rate and regular rhythm Heart Sounds: normal S1 and normal S2; no gallop, no murmur and no cardiac rub Gastrointestinal (Abdomen): normal bowel sounds, soft, nontender, no hepatosplenomegaly Skin: no rashes, warm and dry Results & Data Vital Signs (Past 12 Hours) Vital Signs Temp Pulse Resp BP Pulse Ox 07/08/19 07:07 36.8 C 100 H 16 119/82 95 07/08/19 03:37 36.5 C 106 H 16 107/72 97 07/07/19 23:28 36.5 C 102 H 16 110/78 92 Laboratory Results 07/08/19 07/08/19 07/08/19 Range/Units 15:54 14:55 13:55 WBC (4.8-10.8) K/uL RBC (4.7-6.1) M/uL Hgb (14.0-18.0) g/dL Hct (42-52) % MCV (80-100) fL MCH (25-34) pg MCHC (32-36) g/dL RDW Std Deviation (36.4-46.3) fL RDW Coeff of Dora (11.5-14.5) % Plt Count (130-400) K/uL MPV (7.4-10.4) fL Immature Gran % (Auto) % Neut % (Auto) % Lymph % (Auto) % Kane % (Auto) % Eos % (Auto) % Baso % (Auto) % Immature Gran # (Auto) (0.00-0.02) K/uL Neut # (Auto) (1.4-6.5) K/uL Lymph # (Auto) (1.2-3.4) K/uL Kane # (Auto) (0.11-0.59) K/uL Eos # (Auto) (0-0.5) K/uL Baso # (Auto) (0-0.2) K/uL Sodium Pending (136-145) mmol/L Potassium Pending (3.5-5.1) mmol/L Chloride Pending (98-107) mmol/L Carbon Dioxide Pending (21-32) mmol/L Anion Gap Pending (3-11) BUN Pending (7-18) mg/dl Creatinine Pending (0.6-1.4) mg/dl Est Cr Clr Drug Dosing Pending ml/min Est GFR ( Amer) Pending Est GFR (Non-Af Amer) Pending BUN/Creatinine Ratio Pending (10-20) Glucose Pending (70-99) mg/dl POC Glucose 399 H* 523 H* (70-99) Estimat Average Glucose Hemoglobin A1c Hgb A1c Pathologist Com C-Peptide Calcium Pending (8.5-10.1) mg/dl Total Bilirubin (0.2-1) mg/dl AST (15-37) U/L ALT (12-78) U/L Alkaline Phosphatase (45-117) U/L Total Protein (6.4-8.2) gm/dl Albumin (3.4-5.0) gm/dl Globulin (2.5-4.0) gm/dl Albumin/Globulin Ratio (0.9-2) Triglycerides (0-150) mg/dl Cholesterol (0-200) mg/dl LDL Cholesterol, Calc mg/dl VLDL Cholesterol, Calc mg/dl HDL Cholesterol mg/dl Cholesterol/HDL Ratio Beta-Hydroxybutyric Acd (0.2-2.81) mg/dl Urine Opiates Screen (Neg) Ur Methadone, Qual (Neg) Urine Barbiturates (Neg) Ur Phencyclidine (PCP) (Neg) U Amphetamin/Meth Scrn (Neg) MDMA (Ecstasy) Screen (Neg) U Benzodiazepines Scrn (Neg) Ur Cocaine Metabolite (Neg) U Marijuana (THC) Screen (Neg) Miscellaneous Test 07/08/19 07/08/19 07/08/19 Range/Units 12:56 12:56 11:55 WBC (4.8-10.8) K/uL RBC (4.7-6.1) M/uL Hgb (14.0-18.0) g/dL Hct (42-52) % MCV (80-100) fL MCH (25-34) pg MCHC (32-36) g/dL RDW Std Deviation (36.4-46.3) fL RDW Coeff of Dora (11.5-14.5) % Plt Count (130-400) K/uL MPV (7.4-10.4) fL Immature Gran % (Auto) % Neut % (Auto) % Lymph % (Auto) % Kane % (Auto) % Eos % (Auto) % Baso % (Auto) % Immature Gran # (Auto) (0.00-0.02) K/uL Neut # (Auto) (1.4-6.5) K/uL Lymph # (Auto) (1.2-3.4) K/uL Kane # (Auto) (0.11-0.59) K/uL Eos # (Auto) (0-0.5) K/uL Baso # (Auto) (0-0.2) K/uL Sodium (136-145) mmol/L Potassium (3.5-5.1) mmol/L Chloride (98-107) mmol/L Carbon Dioxide (21-32) mmol/L Anion Gap (3-11) BUN (7-18) mg/dl Creatinine (0.6-1.4) mg/dl Est Cr Clr Drug Dosing ml/min Est GFR ( Amer) Est GFR (Non-Af Amer) BUN/Creatinine Ratio (10-20) Glucose (70-99) mg/dl POC Glucose 557 H* 555 H* 383 H* (70-99) Estimat Average Glucose Hemoglobin A1c Hgb A1c Pathologist Com C-Peptide Calcium (8.5-10.1) mg/dl Total Bilirubin (0.2-1) mg/dl AST (15-37) U/L ALT (12-78) U/L Alkaline Phosphatase (45-117) U/L Total Protein (6.4-8.2) gm/dl Albumin (3.4-5.0) gm/dl Globulin (2.5-4.0) gm/dl Albumin/Globulin Ratio (0.9-2) Triglycerides (0-150) mg/dl Cholesterol (0-200) mg/dl LDL Cholesterol, Calc mg/dl VLDL Cholesterol, Calc mg/dl HDL Cholesterol mg/dl Cholesterol/HDL Ratio Beta-Hydroxybutyric Acd (0.2-2.81) mg/dl Urine Opiates Screen (Neg) Ur Methadone, Qual (Neg) Urine Barbiturates (Neg) Ur Phencyclidine (PCP) (Neg) U Amphetamin/Meth Scrn (Neg) MDMA (Ecstasy) Screen (Neg) U Benzodiazepines Scrn (Neg) Ur Cocaine Metabolite (Neg) U Marijuana (THC) Screen (Neg) Miscellaneous Test 07/08/19 07/08/19 07/08/19 Range/Units 11:53 11:53 11:00 WBC (4.8-10.8) K/uL RBC (4.7-6.1) M/uL Hgb (14.0-18.0) g/dL Hct (42-52) % MCV (80-100) fL MCH (25-34) pg MCHC (32-36) g/dL RDW Std Deviation (36.4-46.3) fL RDW Coeff of Dora (11.5-14.5) % Plt Count (130-400) K/uL MPV (7.4-10.4) fL Immature Gran % (Auto) % Neut % (Auto) % Lymph % (Auto) % Kane % (Auto) % Eos % (Auto) % Baso % (Auto) % Immature Gran # (Auto) (0.00-0.02) K/uL Neut # (Auto) (1.4-6.5) K/uL Lymph # (Auto) (1.2-3.4) K/uL Kane # (Auto) (0.11-0.59) K/uL Eos # (Auto) (0-0.5) K/uL Baso # (Auto) (0-0.2) K/uL Sodium 155 H (136-145) mmol/L Potassium 4.0 (3.5-5.1) mmol/L Chloride 121 H (98-107) mmol/L Carbon Dioxide 31 (21-32) mmol/L Anion Gap 4.0 (3-11) BUN 30 H (7-18) mg/dl Creatinine 1.57 H (0.6-1.4) mg/dl Est Cr Clr Drug Dosing 60.6 ml/min Est GFR ( Amer) 59.1 Est GFR (Non-Af Amer) 51.0 BUN/Creatinine Ratio 19.0 (10-20) Glucose 409 H* (70-99) mg/dl POC Glucose 359 H* (70-99) Estimat Average Glucose Hemoglobin A1c Hgb A1c Pathologist Com C-Peptide Pending Calcium 9.2 (8.5-10.1) mg/dl Total Bilirubin (0.2-1) mg/dl AST (15-37) U/L ALT (12-78) U/L Alkaline Phosphatase (45-117) U/L Total Protein (6.4-8.2) gm/dl Albumin (3.4-5.0) gm/dl Globulin (2.5-4.0) gm/dl Albumin/Globulin Ratio (0.9-2) Triglycerides (0-150) mg/dl Cholesterol (0-200) mg/dl LDL Cholesterol, Calc mg/dl VLDL Cholesterol, Calc mg/dl HDL Cholesterol mg/dl Cholesterol/HDL Ratio Beta-Hydroxybutyric Acd 3.68 H (0.2-2.81) mg/dl Urine Opiates Screen (Neg) Ur Methadone, Qual (Neg) Urine Barbiturates (Neg) Ur Phencyclidine (PCP) (Neg) U Amphetamin/Meth Scrn (Neg) MDMA (Ecstasy) Screen (Neg) U Benzodiazepines Scrn (Neg) Ur Cocaine Metabolite (Neg) U Marijuana (THC) Screen (Neg) Miscellaneous Test 07/08/19 07/08/19 07/08/19 Range/Units 10:01 08:59 08:06 WBC (4.8-10.8) K/uL RBC (4.7-6.1) M/uL Hgb (14.0-18.0) g/dL Hct (42-52) % MCV (80-100) fL MCH (25-34) pg MCHC (32-36) g/dL RDW Std Deviation (36.4-46.3) fL RDW Coeff of Dora (11.5-14.5) % Plt Count (130-400) K/uL MPV (7.4-10.4) fL Immature Gran % (Auto) % Neut % (Auto) % Lymph % (Auto) % Kane % (Auto) % Eos % (Auto) % Baso % (Auto) % Immature Gran # (Auto) (0.00-0.02) K/uL Neut # (Auto) (1.4-6.5) K/uL Lymph # (Auto) (1.2-3.4) K/uL Kane # (Auto) (0.11-0.59) K/uL Eos # (Auto) (0-0.5) K/uL Baso # (Auto) (0-0.2) K/uL Sodium (136-145) mmol/L Potassium (3.5-5.1) mmol/L Chloride (98-107) mmol/L Carbon Dioxide (21-32) mmol/L Anion Gap (3-11) BUN (7-18) mg/dl Creatinine (0.6-1.4) mg/dl Est Cr Clr Drug Dosing ml/min Est GFR ( Amer) Est GFR (Non-Af Amer) BUN/Creatinine Ratio (10-20) Glucose (70-99) mg/dl POC Glucose 339 H* 332 H* 225 H (70-99) Estimat Average Glucose Hemoglobin A1c Hgb A1c Pathologist Com C-Peptide Calcium (8.5-10.1) mg/dl Total Bilirubin (0.2-1) mg/dl AST (15-37) U/L ALT (12-78) U/L Alkaline Phosphatase (45-117) U/L Total Protein (6.4-8.2) gm/dl Albumin (3.4-5.0) gm/dl Globulin (2.5-4.0) gm/dl Albumin/Globulin Ratio (0.9-2) Triglycerides (0-150) mg/dl Cholesterol (0-200) mg/dl LDL Cholesterol, Calc mg/dl VLDL Cholesterol, Calc mg/dl HDL Cholesterol mg/dl Cholesterol/HDL Ratio Beta-Hydroxybutyric Acd (0.2-2.81) mg/dl Urine Opiates Screen (Neg) Ur Methadone, Qual (Neg) Urine Barbiturates (Neg) Ur Phencyclidine (PCP) (Neg) U Amphetamin/Meth Scrn (Neg) MDMA (Ecstasy) Screen (Neg) U Benzodiazepines Scrn (Neg) Ur Cocaine Metabolite (Neg) U Marijuana (THC) Screen (Neg) Miscellaneous Test 07/08/19 07/08/19 07/08/19 Range/Units 07:02 07:00 05:56 WBC (4.8-10.8) K/uL RBC (4.7-6.1) M/uL Hgb (14.0-18.0) g/dL Hct (42-52) % MCV (80-100) fL MCH (25-34) pg MCHC (32-36) g/dL RDW Std Deviation (36.4-46.3) fL RDW Coeff of Dora (11.5-14.5) % Plt Count (130-400) K/uL MPV (7.4-10.4) fL Immature Gran % (Auto) % Neut % (Auto) % Lymph % (Auto) % Kane % (Auto) % Eos % (Auto) % Baso % (Auto) % Immature Gran # (Auto) (0.00-0.02) K/uL Neut # (Auto) (1.4-6.5) K/uL Lymph # (Auto) (1.2-3.4) K/uL Kane # (Auto) (0.11-0.59) K/uL Eos # (Auto) (0-0.5) K/uL Baso # (Auto) (0-0.2) K/uL Sodium 160 H* (136-145) mmol/L Potassium 4.0 (3.5-5.1) mmol/L Chloride 126 H (98-107) mmol/L Carbon Dioxide 30 (21-32) mmol/L Anion Gap 4.0 (3-11) BUN 34 H (7-18) mg/dl Creatinine 1.49 H (0.6-1.4) mg/dl Est Cr Clr Drug Dosing 63.9 ml/min Est GFR ( Amer) 63.0 Est GFR (Non-Af Amer) 54.3 BUN/Creatinine Ratio 23.1 H (10-20) Glucose 218 H (70-99) mg/dl POC Glucose 219 H 218 H (70-99) Estimat Average Glucose Hemoglobin A1c Hgb A1c Pathologist Com C-Peptide Calcium 9.3 (8.5-10.1) mg/dl Total Bilirubin (0.2-1) mg/dl AST (15-37) U/L ALT (12-78) U/L Alkaline Phosphatase (45-117) U/L Total Protein (6.4-8.2) gm/dl Albumin (3.4-5.0) gm/dl Globulin (2.5-4.0) gm/dl Albumin/Globulin Ratio (0.9-2) Triglycerides (0-150) mg/dl Cholesterol (0-200) mg/dl LDL Cholesterol, Calc mg/dl VLDL Cholesterol, Calc mg/dl HDL Cholesterol mg/dl Cholesterol/HDL Ratio Beta-Hydroxybutyric Acd (0.2-2.81) mg/dl Urine Opiates Screen (Neg) Ur Methadone, Qual (Neg) Urine Barbiturates (Neg) Ur Phencyclidine (PCP) (Neg) U Amphetamin/Meth Scrn (Neg) MDMA (Ecstasy) Screen (Neg) U Benzodiazepines Scrn (Neg) Ur Cocaine Metabolite (Neg) U Marijuana (THC) Screen (Neg) Miscellaneous Test 07/08/19 07/08/19 07/08/19 Range/Units 03:45 03:36 03:36 WBC 9.15 (4.8-10.8) K/uL RBC 5.42 (4.7-6.1) M/uL Hgb 13.9 L (14.0-18.0) g/dL Hct 42.3 (42-52) % MCV 78.0 L (80-100) fL MCH 25.6 (25-34) pg MCHC 32.9 (32-36) g/dL RDW Std Deviation 42.5 (36.4-46.3) fL RDW Coeff of Dora 15.0 H (11.5-14.5) % Plt Count 226 (130-400) K/uL MPV 11.5 H (7.4-10.4) fL Immature Gran % (Auto) 0.2 % Neut % (Auto) 55.1 % Lymph % (Auto) 32.2 % Kane % (Auto) 8.5 % Eos % (Auto) 3.8 % Baso % (Auto) 0.2 % Immature Gran # (Auto) 0.02 (0.00-0.02) K/uL Neut # (Auto) 5.03 (1.4-6.5) K/uL Lymph # (Auto) 2.95 (1.2-3.4) K/uL Kane # (Auto) 0.78 H (0.11-0.59) K/uL Eos # (Auto) 0.35 (0-0.5) K/uL Baso # (Auto) 0.02 (0-0.2) K/uL Sodium (136-145) mmol/L Potassium (3.5-5.1) mmol/L Chloride (98-107) mmol/L Carbon Dioxide (21-32) mmol/L Anion Gap (3-11) BUN (7-18) mg/dl Creatinine (0.6-1.4) mg/dl Est Cr Clr Drug Dosing ml/min Est GFR ( Amer) Est GFR (Non-Af Amer) BUN/Creatinine Ratio (10-20) Glucose (70-99) mg/dl POC Glucose 131 H 149 H (70-99) Estimat Average Glucose Hemoglobin A1c Hgb A1c Pathologist Com C-Peptide Calcium (8.5-10.1) mg/dl Total Bilirubin (0.2-1) mg/dl AST (15-37) U/L ALT (12-78) U/L Alkaline Phosphatase (45-117) U/L Total Protein (6.4-8.2) gm/dl Albumin (3.4-5.0) gm/dl Globulin (2.5-4.0) gm/dl Albumin/Globulin Ratio (0.9-2) Triglycerides (0-150) mg/dl Cholesterol (0-200) mg/dl LDL Cholesterol, Calc mg/dl VLDL Cholesterol, Calc mg/dl HDL Cholesterol mg/dl Cholesterol/HDL Ratio Beta-Hydroxybutyric Acd (0.2-2.81) mg/dl Urine Opiates Screen (Neg) Ur Methadone, Qual (Neg) Urine Barbiturates (Neg) Ur Phencyclidine (PCP) (Neg) U Amphetamin/Meth Scrn (Neg) MDMA (Ecstasy) Screen (Neg) U Benzodiazepines Scrn (Neg) Ur Cocaine Metabolite (Neg) U Marijuana (THC) Screen (Neg) Miscellaneous Test 07/08/19 07/08/19 07/08/19 Range/Units 03:36 01:31 00:31 WBC (4.8-10.8) K/uL RBC (4.7-6.1) M/uL Hgb (14.0-18.0) g/dL Hct (42-52) % MCV (80-100) fL MCH (25-34) pg MCHC (32-36) g/dL RDW Std Deviation (36.4-46.3) fL RDW Coeff of Dora (11.5-14.5) % Plt Count (130-400) K/uL MPV (7.4-10.4) fL Immature Gran % (Auto) % Neut % (Auto) % Lymph % (Auto) % Kane % (Auto) % Eos % (Auto) % Baso % (Auto) % Immature Gran # (Auto) (0.00-0.02) K/uL Neut # (Auto) (1.4-6.5) K/uL Lymph # (Auto) (1.2-3.4) K/uL Kane # (Auto) (0.11-0.59) K/uL Eos # (Auto) (0-0.5) K/uL Baso # (Auto) (0-0.2) K/uL Sodium 161 H* (136-145) mmol/L Potassium 4.0 (3.5-5.1) mmol/L Chloride 127 H (98-107) mmol/L Carbon Dioxide 33 H (21-32) mmol/L Anion Gap 1.0 L (3-11) BUN 35 H (7-18) mg/dl Creatinine 1.54 H (0.6-1.4) mg/dl Est Cr Clr Drug Dosing 61.8 ml/min Est GFR ( Amer) 60.5 Est GFR (Non-Af Amer) 52.2 BUN/Creatinine Ratio 22.9 H (10-20) Glucose 156 H (70-99) mg/dl POC Glucose 282 H 277 H (70-99) Estimat Average Glucose Hemoglobin A1c Hgb A1c Pathologist Com C-Peptide Calcium 8.9 (8.5-10.1) mg/dl Total Bilirubin 0.5 (0.2-1) mg/dl AST 5 L (15-37) U/L ALT 13 (12-78) U/L Alkaline Phosphatase 108 (45-117) U/L Total Protein 7.3 (6.4-8.2) gm/dl Albumin 3.7 (3.4-5.0) gm/dl Globulin 3.6 (2.5-4.0) gm/dl Albumin/Globulin Ratio 1.0 (0.9-2) Triglycerides 191 H (0-150) mg/dl Cholesterol 209 H (0-200) mg/dl LDL Cholesterol, Calc 119 mg/dl VLDL Cholesterol, Calc 38 mg/dl HDL Cholesterol 52 mg/dl Cholesterol/HDL Ratio 4 Beta-Hydroxybutyric Acd (0.2-2.81) mg/dl Urine Opiates Screen (Neg) Ur Methadone, Qual (Neg) Urine Barbiturates (Neg) Ur Phencyclidine (PCP) (Neg) U Amphetamin/Meth Scrn (Neg) MDMA (Ecstasy) Screen (Neg) U Benzodiazepines Scrn (Neg) Ur Cocaine Metabolite (Neg) U Marijuana (THC) Screen (Neg) Miscellaneous Test 07/07/19 07/07/19 07/07/19 Range/Units 23:30 23:16 22:33 WBC (4.8-10.8) K/uL RBC (4.7-6.1) M/uL Hgb (14.0-18.0) g/dL Hct (42-52) % MCV (80-100) fL MCH (25-34) pg MCHC (32-36) g/dL RDW Std Deviation (36.4-46.3) fL RDW Coeff of Dora (11.5-14.5) % Plt Count (130-400) K/uL MPV (7.4-10.4) fL Immature Gran % (Auto) % Neut % (Auto) % Lymph % (Auto) % Kane % (Auto) % Eos % (Auto) % Baso % (Auto) % Immature Gran # (Auto) (0.00-0.02) K/uL Neut # (Auto) (1.4-6.5) K/uL Lymph # (Auto) (1.2-3.4) K/uL Kane # (Auto) (0.11-0.59) K/uL Eos # (Auto) (0-0.5) K/uL Baso # (Auto) (0-0.2) K/uL Sodium 160 H* (136-145) mmol/L Potassium 4.5 (3.5-5.1) mmol/L Chloride 125 H (98-107) mmol/L Carbon Dioxide 31 (21-32) mmol/L Anion Gap 4.0 (3-11) BUN 39 H (7-18) mg/dl Creatinine 1.76 H (0.6-1.4) mg/dl Est Cr Clr Drug Dosing 54.1 ml/min Est GFR ( Amer) 51.5 Est GFR (Non-Af Amer) 44.4 BUN/Creatinine Ratio 22.3 H (10-20) Glucose 373 H* (70-99) mg/dl POC Glucose 325 H* 339 H* (70-99) Estimat Average Glucose Hemoglobin A1c Hgb A1c Pathologist Com C-Peptide Calcium 8.9 (8.5-10.1) mg/dl Total Bilirubin (0.2-1) mg/dl AST (15-37) U/L ALT (12-78) U/L Alkaline Phosphatase (45-117) U/L Total Protein (6.4-8.2) gm/dl Albumin (3.4-5.0) gm/dl Globulin (2.5-4.0) gm/dl Albumin/Globulin Ratio (0.9-2) Triglycerides (0-150) mg/dl Cholesterol (0-200) mg/dl LDL Cholesterol, Calc mg/dl VLDL Cholesterol, Calc mg/dl HDL Cholesterol mg/dl Cholesterol/HDL Ratio Beta-Hydroxybutyric Acd 7.22 H (0.2-2.81) mg/dl Urine Opiates Screen (Neg) Ur Methadone, Qual (Neg) Urine Barbiturates (Neg) Ur Phencyclidine (PCP) (Neg) U Amphetamin/Meth Scrn (Neg) MDMA (Ecstasy) Screen (Neg) U Benzodiazepines Scrn (Neg) Ur Cocaine Metabolite (Neg) U Marijuana (THC) Screen (Neg) Miscellaneous Test 07/07/19 07/07/19 07/07/19 Range/Units 21:29 20:32 19:31 WBC (4.8-10.8) K/uL RBC (4.7-6.1) M/uL Hgb (14.0-18.0) g/dL Hct (42-52) % MCV (80-100) fL MCH (25-34) pg MCHC (32-36) g/dL RDW Std Deviation (36.4-46.3) fL RDW Coeff of Dora (11.5-14.5) % Plt Count (130-400) K/uL MPV (7.4-10.4) fL Immature Gran % (Auto) % Neut % (Auto) % Lymph % (Auto) % Kane % (Auto) % Eos % (Auto) % Baso % (Auto) % Immature Gran # (Auto) (0.00-0.02) K/uL Neut # (Auto) (1.4-6.5) K/uL Lymph # (Auto) (1.2-3.4) K/uL Kane # (Auto) (0.11-0.59) K/uL Eos # (Auto) (0-0.5) K/uL Baso # (Auto) (0-0.2) K/uL Sodium (136-145) mmol/L Potassium (3.5-5.1) mmol/L Chloride (98-107) mmol/L Carbon Dioxide (21-32) mmol/L Anion Gap (3-11) BUN (7-18) mg/dl Creatinine (0.6-1.4) mg/dl Est Cr Clr Drug Dosing ml/min Est GFR ( Amer) Est GFR (Non-Af Amer) BUN/Creatinine Ratio (10-20) Glucose (70-99) mg/dl POC Glucose 269 H 242 H 219 H (70-99) Estimat Average Glucose Hemoglobin A1c Hgb A1c Pathologist Com C-Peptide Calcium (8.5-10.1) mg/dl Total Bilirubin (0.2-1) mg/dl AST (15-37) U/L ALT (12-78) U/L Alkaline Phosphatase (45-117) U/L Total Protein (6.4-8.2) gm/dl Albumin (3.4-5.0) gm/dl Globulin (2.5-4.0) gm/dl Albumin/Globulin Ratio (0.9-2) Triglycerides (0-150) mg/dl Cholesterol (0-200) mg/dl LDL Cholesterol, Calc mg/dl VLDL Cholesterol, Calc mg/dl HDL Cholesterol mg/dl Cholesterol/HDL Ratio Beta-Hydroxybutyric Acd (0.2-2.81) mg/dl Urine Opiates Screen (Neg) Ur Methadone, Qual (Neg) Urine Barbiturates (Neg) Ur Phencyclidine (PCP) (Neg) U Amphetamin/Meth Scrn (Neg) MDMA (Ecstasy) Screen (Neg) U Benzodiazepines Scrn (Neg) Ur Cocaine Metabolite (Neg) U Marijuana (THC) Screen (Neg) Miscellaneous Test 07/07/19 07/07/19 07/07/19 Range/Units 19:07 18:44 18:02 WBC (4.8-10.8) K/uL RBC (4.7-6.1) M/uL Hgb (14.0-18.0) g/dL Hct (42-52) % MCV (80-100) fL MCH (25-34) pg MCHC (32-36) g/dL RDW Std Deviation (36.4-46.3) fL RDW Coeff of Dora (11.5-14.5) % Plt Count (130-400) K/uL MPV (7.4-10.4) fL Immature Gran % (Auto) % Neut % (Auto) % Lymph % (Auto) % Kane % (Auto) % Eos % (Auto) % Baso % (Auto) % Immature Gran # (Auto) (0.00-0.02) K/uL Neut # (Auto) (1.4-6.5) K/uL Lymph # (Auto) (1.2-3.4) K/uL Kane # (Auto) (0.11-0.59) K/uL Eos # (Auto) (0-0.5) K/uL Baso # (Auto) (0-0.2) K/uL Sodium 166 H* (136-145) mmol/L Potassium 4.1 (3.5-5.1) mmol/L Chloride 129 H (98-107) mmol/L Carbon Dioxide 31 (21-32) mmol/L Anion Gap 6.0 (3-11) BUN 39 H (7-18) mg/dl Creatinine 1.88 H (0.6-1.4) mg/dl Est Cr Clr Drug Dosing 50.6 ml/min Est GFR ( Amer) 47.5 Est GFR (Non-Af Amer) 41.0 BUN/Creatinine Ratio 20.8 H (10-20) Glucose 247 H (70-99) mg/dl POC Glucose 207 H 264 H (70-99) Estimat Average Glucose Hemoglobin A1c Hgb A1c Pathologist Com C-Peptide Calcium 9.4 (8.5-10.1) mg/dl Total Bilirubin (0.2-1) mg/dl AST (15-37) U/L ALT (12-78) U/L Alkaline Phosphatase (45-117) U/L Total Protein (6.4-8.2) gm/dl Albumin (3.4-5.0) gm/dl Globulin (2.5-4.0) gm/dl Albumin/Globulin Ratio (0.9-2) Triglycerides (0-150) mg/dl Cholesterol (0-200) mg/dl LDL Cholesterol, Calc mg/dl VLDL Cholesterol, Calc mg/dl HDL Cholesterol mg/dl Cholesterol/HDL Ratio Beta-Hydroxybutyric Acd (0.2-2.81) mg/dl Urine Opiates Screen (Neg) Ur Methadone, Qual (Neg) Urine Barbiturates (Neg) Ur Phencyclidine (PCP) (Neg) U Amphetamin/Meth Scrn (Neg) MDMA (Ecstasy) Screen (Neg) U Benzodiazepines Scrn (Neg) Ur Cocaine Metabolite (Neg) U Marijuana (THC) Screen (Neg) Miscellaneous Test 07/07/19 07/07/19 07/07/19 Range/Units 17:23 17:03 15:28 WBC (4.8-10.8) K/uL RBC (4.7-6.1) M/uL Hgb (14.0-18.0) g/dL Hct (42-52) % MCV (80-100) fL MCH (25-34) pg MCHC (32-36) g/dL RDW Std Deviation (36.4-46.3) fL RDW Coeff of Dora (11.5-14.5) % Plt Count (130-400) K/uL MPV (7.4-10.4) fL Immature Gran % (Auto) % Neut % (Auto) % Lymph % (Auto) % Kane % (Auto) % Eos % (Auto) % Baso % (Auto) % Immature Gran # (Auto) (0.00-0.02) K/uL Neut # (Auto) (1.4-6.5) K/uL Lymph # (Auto) (1.2-3.4) K/uL Kane # (Auto) (0.11-0.59) K/uL Eos # (Auto) (0-0.5) K/uL Baso # (Auto) (0-0.2) K/uL Sodium (136-145) mmol/L Potassium (3.5-5.1) mmol/L Chloride (98-107) mmol/L Carbon Dioxide (21-32) mmol/L Anion Gap (3-11) BUN (7-18) mg/dl Creatinine (0.6-1.4) mg/dl Est Cr Clr Drug Dosing ml/min Est GFR ( Amer) Est GFR (Non-Af Amer) BUN/Creatinine Ratio (10-20) Glucose (70-99) mg/dl POC Glucose 340 H* (70-99) Estimat Average Glucose Hemoglobin A1c Hgb A1c Pathologist Com C-Peptide Calcium (8.5-10.1) mg/dl Total Bilirubin (0.2-1) mg/dl AST (15-37) U/L ALT (12-78) U/L Alkaline Phosphatase (45-117) U/L Total Protein (6.4-8.2) gm/dl Albumin (3.4-5.0) gm/dl Globulin (2.5-4.0) gm/dl Albumin/Globulin Ratio (0.9-2) Triglycerides (0-150) mg/dl Cholesterol (0-200) mg/dl LDL Cholesterol, Calc mg/dl VLDL Cholesterol, Calc mg/dl HDL Cholesterol mg/dl Cholesterol/HDL Ratio Beta-Hydroxybutyric Acd 73.68 H (0.2-2.81) mg/dl Urine Opiates Screen Neg (Neg) Ur Methadone, Qual Neg (Neg) Urine Barbiturates Neg (Neg) Ur Phencyclidine (PCP) Neg (Neg) U Amphetamin/Meth Scrn Neg (Neg) MDMA (Ecstasy) Screen Neg (Neg) U Benzodiazepines Scrn Neg (Neg) Ur Cocaine Metabolite Neg (Neg) U Marijuana (THC) Screen Neg (Neg) Miscellaneous Test 07/07/19 07/07/19 Range/Units 11:15 11:15 WBC (4.8-10.8) K/uL RBC (4.7-6.1) M/uL Hgb (14.0-18.0) g/dL Hct (42-52) % MCV (80-100) fL MCH (25-34) pg MCHC (32-36) g/dL RDW Std Deviation (36.4-46.3) fL RDW Coeff of Dora (11.5-14.5) % Plt Count (130-400) K/uL MPV (7.4-10.4) fL Immature Gran % (Auto) % Neut % (Auto) % Lymph % (Auto) % Kane % (Auto) % Eos % (Auto) % Baso % (Auto) % Immature Gran # (Auto) (0.00-0.02) K/uL Neut # (Auto) (1.4-6.5) K/uL Lymph # (Auto) (1.2-3.4) K/uL Kane # (Auto) (0.11-0.59) K/uL Eos # (Auto) (0-0.5) K/uL Baso # (Auto) (0-0.2) K/uL Sodium (136-145) mmol/L Potassium (3.5-5.1) mmol/L Chloride (98-107) mmol/L Carbon Dioxide (21-32) mmol/L Anion Gap (3-11) BUN (7-18) mg/dl Creatinine (0.6-1.4) mg/dl Est Cr Clr Drug Dosing ml/min Est GFR ( Amer) Est GFR (Non-Af Amer) BUN/Creatinine Ratio (10-20) Glucose (70-99) mg/dl POC Glucose (70-99) Estimat Average Glucose TNP Hemoglobin A1c TNP Hgb A1c Pathologist Com C-Peptide Calcium (8.5-10.1) mg/dl Total Bilirubin (0.2-1) mg/dl AST (15-37) U/L ALT (12-78) U/L Alkaline Phosphatase (45-117) U/L Total Protein (6.4-8.2) gm/dl Albumin (3.4-5.0) gm/dl Globulin (2.5-4.0) gm/dl Albumin/Globulin Ratio (0.9-2) Triglycerides (0-150) mg/dl Cholesterol (0-200) mg/dl LDL Cholesterol, Calc mg/dl VLDL Cholesterol, Calc mg/dl HDL Cholesterol mg/dl Cholesterol/HDL Ratio Beta-Hydroxybutyric Acd (0.2-2.81) mg/dl Urine Opiates Screen (Neg) Ur Methadone, Qual (Neg) Urine Barbiturates (Neg) Ur Phencyclidine (PCP) (Neg) U Amphetamin/Meth Scrn (Neg) MDMA (Ecstasy) Screen (Neg) U Benzodiazepines Scrn (Neg) Ur Cocaine Metabolite (Neg) U Marijuana (THC) Screen (Neg) Miscellaneous Test Pending Medications Administered Current Inpatient Medications Acetaminophen (Tylenol) 650 mg PO Q4H PRN PRN Reason: Pain or Fever Stop: 08/06/19 15:09 Al Hydrox/Mg Hydrox/Simethicone (Maalox) 15 ml PO Q4H PRN PRN Reason: Dyspepsia Stop: 08/06/19 15:09 Amlodipine Besylate (Norvasc) 10 mg PO DAILY [facility] Stop: 08/07/19 08:59 Last Admin: 07/08/19 08:57 Dose: 10 mg Documented by: Chlorthalidone (Hygroton) 25 mg PO DAILY [facility] Stop: 08/07/19 08:59 Last Admin: 07/08/19 08:57 Dose: 25 mg Documented by: Clozapine (Clozaril) 50 mg PO DAILY [facility] Stop: 08/07/19 08:59 Last Admin: 07/08/19 08:57 Dose: 50 mg Documented by: Clozapine (Clozapine) 400 mg PO HS [facility] Stop: 08/06/19 20:59 Last Admin: 07/07/19 21:59 Dose: 400 mg Documented by: Dextrose (Dextrose 50%) 25 - 50 ml IV UD PRN; Protocol PRN Reason: Hypoglycemia Protocol Stop: 08/06/19 12:17 Glucagon (Glucagen) 1 mg SQ UD PRN; Protocol PRN Reason: Hypoglycemia Protocol Stop: 08/06/19 12:17 Glucose (Dex4 Glucose) 4 - 8 tabs PO UD PRN; Protocol PRN Reason: Hypoglycemia Protocol Stop: 08/06/19 12:17 Glucose (Glucose 40%) 15 - 30 gm PO UD PRN; Protocol PRN Reason: Hypoglycemia Protocol Stop: 08/06/19 12:17 Heparin Sodium (Porcine) (Heparin Sodium (Porcine)) 5,000 units SQ Q12 [facility] Stop: 08/07/19 08:59 Last Admin: 07/08/19 08:51 Dose: 5,000 units Documented by: Insulin Human Regular 250 (units/ Sodium Chloride) 250 mls @ 1 mls/hr IV .Q24H [facility]; Protocol Stop: 08/06/19 12:29 Last Titration: 07/08/19 09:07 Dose: 1.2 units/hr, 1.2 mls/hr Documented by: Dextrose (D5w) 1,000 mls @ 75 mls/hr IV .[id number] [facility] Stop: 08/06/19 16:59 Last Admin: 07/08/19 00:20 Dose: 75 mls/hr Documented by: Insulin Aspart (Novolog Flexpen) 0 units SC ACHS [facility] Stop: 08/06/19 20:59 Last Admin: 07/08/19 09:09 Dose: Not Given Documented by: Insulin Aspart (Novolog Flexpen) 0 units SC ACHS [facility] Stop: 08/07/19 07:29 Last Admin: 07/08/19 09:05 Dose: 3 units Documented by: Magnesium Hydroxide (Milk Of Magnesia) 30 ml PO Q12H PRN PRN Reason: Constipation Stop: 08/06/19 15:09 Miscellaneous (Carbohydrates For Hypoglycemia) 15 - 30 gm PO UD PRN PRN Reason: Hypoglycemia Protocol Stop: 08/06/19 12:17 Miscellaneous Information (Consult Glycemic Management Pharmacy) 1 ea N/A UD PRN; Protocol PRN Reason: Consult Stop: 08/06/19 15:19 Ondansetron HCl (Zofran) 4 mg IV Q6H PRN PRN Reason: Nausea Stop: 08/06/19 15:09 Paroxetine HCl (Paxil) 20 mg PO DAILY [facility] Stop: 08/07/19 08:59 Last Admin: 07/08/19 08:57 Dose: 20 mg Documented by: Polyethylene Glycol (Miralax Powder Packet) 17 gm PO DAILY PRN PRN Reason: Constipation Stop: 08/06/19 15:09 Valsartan (Diovan) 80 mg PO DAILY [facility] Stop: 08/07/19 08:59 Last Admin: 07/08/19 08:57 Dose: 80 mg Documented by: Resident Activity Tracking Resident Involvement: Resident Care Provided Care Provided: Adult Hospital Medicine
[2019-07-08] MEDS: POTASSIUM CHLORIDE 20 MEQ in DEXTROSE 5% 1,000 ML IV SCH ×2 (10:17→14:31)
[2019-07-08 12:26] LABS: Calcium 9.2 mg/dl (8.5-10.1); Creatinine Clr Calc Pharmacy 60.6 ml/min; Est GFR (African American) 59.1
[2019-07-08 12:39] LABS: Beta-Hydroxybutyrate 3.68 mg/dl (0.2-2.81)
--- NOTE | 2019-07-08 14:33 | Psychiatric Consultation ---
Date of Consultation July 08, 2019 Impression / Recommendations Impression 48-year-old male who is an inmate at [facility], and was admitted medically on 07/07/19 after being transferred from the assisted with blood sugars >700. Psychiatric consultation was requested for "schizophrenia." Collateral information received from the assisted, indicating that the patient has been prescribed clozapine for several years (20+ years per patient report). His current dose is 50mg qAM and 400mg qHS - patient denying recent changes to the dosage. ANC was WNL at 5.03. There was reportedly question of if clozapine may be contributing to patient's DKA presentation. While clozapine can contribute to the presence of metabolic syndrome, it is not likely to solely explain the patient's presentation of DKA. Would suggest continuing his psychotropic medications at their home doses. Pt is denying any signs/symptoms of acute psychosis, including the presence of hallucinations. He is also denying SI/HI. As both schizophrenia and diabetes are chronic conditions, it seems most appropriate that further medication adjustments would only be considered with input from patient's long-term providers within the assisted setting. Dr. Jacqueline Marsh was directly involved in review and discussion of the patient's case and participated in medical decision making regarding treatment recommendations. Risk Factors Assessment Do You Have Access To A Gun?: No Psych History Identifying Data 48-year-old male, currently an inmate at [facility], who was transferred to [facility] ED after suffering multiple falls and being found to have blood glucose >700. Pt has a reported history of schizophrenia. Psychiatric consultation was requested for "schizophrenia" with reported concern that psychotropic medications may be contributing to DKA presentation. Chief Complaint "I fell and hit my head, twice." History of Present Illness Jerel Jeter is a 48-year-old male who is an inmate transferred from [facility] for reports of confusion, having had blood glucose greater than 700 prior to ED presentation. Psychiatric consultation was requested to evaluate patient for "schizophrenia." Progress note suggesting continued auditory hallucinations and confusion. There was also reported inquiry if clozapine may be contributing to patient's DKA presentation. Current medication list was requested from correctional facility, with clozapine dosing confirmed to be 50 mg each morning and 400 mg at bedtime. Patient is also reportedly taking paroxetine 20 mg daily. Patient is cooperative with psychiatric evaluation, though responses to questions are rather concrete and somewhat limited. Patient states the reason for his admission is that he "fell out of my bed and hit my head twice." Patient does verbalize a history of "paranoid schizophrenia", which he states he was diagnosed with in his late 20s. Patient was asked to explain the behaviors that led to this diagnosis, to which he states "there were times where I was becoming more violent." Patient is unable to productively elaborate on this thought despite additional questions. Patient does indicate that his mood has been "good." He does admit to concern related to clozapine, that his only concern related to clozapine is increased appetite. Patient denies auditory hallucinations and paranoia, denying the presence of these even earlier in life. He denies current safety concerns during this hospitalization, as well as at the correctional facility. Patient states that he believes he has been on clozapine for over 20 years, and does not believe that any recent adjustments were made to the medication. Patient does indicate a history of inpatient psychiatric treatments, but states these were "a long time ago." He is unable to elaborate on what these admissions were related to. Patient states that he had previously received haloperidol to manage his psychiatric symptoms; however, he states that he responded to this medication by "getting stuck", indicating that physically he "could not move." Patient states that he is seen routinely by the behavioral health treatment team at [facility], and does not believe that there have been any recent concerns. Patient denies any family history of mental health illnesses. He denies suicidal or homicidal ideation, and other acute concerns at this time. Past Psychiatric History Current Psychiatric Diagnosis: Schizophrenia, paranoid-type - per patient Outpatient Services: Psychiatric management per [facility] behavioral health team. Previous Psych Admissions: Reports history of inpatient psychiatric conditions, "oh, quite a while ago." Do You Have Access To A Gun?: No History of Previous Suicide Attempt: No Past Medication Trials: Per patient's report, only prior medication trial was haloperidol. Pt reports feeling physically "stuck" after receiving the medication, possible dystonic reaction. Allergies Allergy/AdvReac Type Severity Reaction Status Date / Time Penicillins Allergy Unknown Unknown Unverified 07/07/19 11:49 Home Medications Home Medications Medication Instructions Recorded Confirmed Type amlodipine 10 mg PO DAILY 07/07/19 07/08/19 History chlorthalidone 25 mg PO DAILY 07/07/19 07/08/19 History clozapine 50 mg PO DAILY 07/07/19 07/08/19 History clozapine 400 mg PO HS 07/07/19 07/08/19 History omeprazole 20 mg PO DAILY 07/07/19 07/08/19 History paroxetine HCl 20 mg PO DAILY 07/07/19 07/08/19 History valsartan 80 mg PO DAILY 07/07/19 07/08/19 History Family History Denies known family history of mental health conditions. Personal History Living Arrangements: [facility] History of Legal Problems: Currently incarcerated at [facility] Patient History Medical History No pertinent past medical history Family History Other No significant family history Social History Preferred Language: Italian Communication Ability: Effective Current Living Situation Comment: [facility] Other Information That Helps Us Care for You: No Feels Safe at Home: Yes Smoking Status: Former smoker Hx Alcohol Use: No Hx Substance Use: No Physical Exam Psychiatric: Orientation: alert, oriented to person, oriented to place, oriented to time (originally believed it was May 2019, then corrected to July) and cooperative Apperance: appropriately dressed, appropriately groomed and appeared stated age Eye Contact: good eye contact Motor Behavior: no abnormal motor movements (observed while laying in bed) Speech: normal rate/rhythm/volume of speech Affect: + flat affect; no depressed affect and no anxious affect Mood: no depressed mood ("My mood's been good") Thought Process: goal directed thought process, clear/coherent thought process and thought association intact Thought Content: reality based without delusions; not paranoid and no hopelessness Suicidal Thoughts: denies suicidal thoughts and denies suicidal intent Homicidal Thoughts: denies homicidal thoughts Hallucinations: no auditory hallucinations and no visual hallucinations Cognition: attention grossly intact and language grossly intact Insight: + limited insight Judgement: + fair judgement Vital Signs (Past 24 Hours): Last Vital Signs Temp 36.7 C 07/08/19 11:31 Pulse 103 H 07/08/19 11:31 Resp 18 07/08/19 11:31 BP 107/72 07/08/19 11:31 Pulse Ox 97 07/08/19 11:31 Review of Systems Constitutional: reporting some confusion/fogginess Cardiovascular: denied Respiratory: denied Gastrointestinal: denied Neurological: denied Psychiatric: denies symptoms other than stated above Total of at least 10 systems reviewed, pertinent positives as above and in HPI. Results & Data Medications Administered Amlodipine Besylate (Norvasc) 10 mg PO DAILY [facility] Stop: 08/07/19 08:59 Last Admin: 07/08/19 08:57 Dose: 10 mg Documented by: [id number] Clozapine (Clozaril) 50 mg PO DAILY [facility] Stop: 08/07/19 08:59 Last Admin: 07/08/19 08:57 Dose: 50 mg Documented by: [id number] Clozapine (Clozapine) 400 mg PO HS [facility] Stop: 08/06/19 20:59 Last Admin: 07/07/19 21:59 Dose: 400 mg Documented by: [id number] Heparin Sodium (Porcine) (Heparin Sodium (Porcine)) 5,000 units SQ Q12 [facility] Stop: 08/07/19 08:59 Last Admin: 07/08/19 08:51 Dose: 5,000 units Documented by: [id number] Cosigned by: [id number] Insulin Human Regular 250 (units/ Sodium Chloride) 250 mls @ 3.4 mls/hr IV .Q24H [facility]; Protocol Stop: 08/06/19 12:29 Last Titration: 07/08/19 14:04 Dose: 3.4 units/hr, 3.4 mls/hr Documented by: [id number] Cosigned by: [id number] Titration: 07/08/19 13:06 Dose: 2.8 units/hr, 2.8 mls/hr Documented by: [id number] Cosigned by: [id number] Titration: 07/08/19 12:13 Dose: 2 units/hr, 2 mls/hr Documented by: [id number] Cosigned by: [id number] Titration: 07/08/19 12:01 Dose: 1.7 units/hr, 1.7 mls/hr Documented by: [id number] Cosigned by: [id number] Titration: 07/08/19 11:01 Dose: 1.4 units/hr, 1.4 mls/hr Documented by: [id number] Cosigned by: [id number] Titration: 07/08/19 09:07 Dose: 1.2 units/hr, 1.2 mls/hr Documented by: [id number] Cosigned by: [id number] Titration: 07/08/19 07:10 Dose: 1 units/hr, 1 mls/hr Documented by: [id number] Cosigned by: [id number] Titration: 07/08/19 06:09 Dose: 1 units/hr, 1 mls/hr Documented by: [id number] Cosigned by: [id number] Titration: 07/08/19 03:41 Dose: 0 units/hr, 0 mls/hr Documented by: [id number] Cosigned by: [id number] Titration: 07/07/19 22:36 Dose: 3.6 units/hr, 3.6 mls/hr Documented by: [id number] Cosigned by: [id number] Titration: 07/07/19 19:33 Dose: 3 units/hr, 3 mls/hr Documented by: [id number] Cosigned by: [id number] Titration: 07/07/19 19:11 Dose: 0 units/hr, 0 mls/hr Documented by: [id number] Cosigned by: [id number] Titration: 07/07/19 18:07 Dose: 5.3 units/hr, 5.3 mls/hr Documented by: [id number] Cosigned by: [id number] Titration: 07/07/19 17:04 Dose: 6.6 units/hr, 6.6 mls/hr Documented by: [id number] Cosigned by: [id number] Titration: 07/07/19 16:14 Dose: 6.6 units/hr, 6.6 mls/hr Documented by: [id number] Cosigned by: [id number] Titration: 07/07/19 15:06 Dose: 8.3 units/hr, 8.3 mls/hr Documented by: [id number] Cosigned by: [id number] Admin: 07/07/19 13:56 Dose: 8.3 units/hr, 8.3 mls/hr Documented by: [id number] Cosigned by: [id number] Potassium Chloride 20 meq/ (Dextrose) 1,010 mls @ 125 mls/hr IV .Q8H5M [facility] Stop: 08/07/19 09:59 Last Admin: 07/08/19 14:31 Dose: 125 mls/hr Documented by: [id number] Infusion: 07/08/19 14:31 Dose: 125 mls/hr Documented by: [id number] Infusion: 07/08/19 13:38 Dose: 125 mls/hr Documented by: [id number] Admin: 07/08/19 10:17 Dose: 250 mls/hr Documented by: [id number] Insulin Aspart (Novolog Flexpen) 0 units SC ACHS [facility] Stop: 08/06/19 20:59 Last Admin: 07/08/19 09:09 Dose: Not Given Documented by: [id number] Cosigned by: [id number] Admin: 07/07/19 21:59 Dose: 3 units Documented by: [id number] Cosigned by: [id number] Insulin Aspart (Novolog Flexpen) 0 units SC ACHS [facility] Stop: 08/07/19 07:29 Last Admin: 07/08/19 11:35 Dose: 4 units Documented by: [id number] Cosigned by: [id number] Admin: 07/08/19 09:05 Dose: 3 units Documented by: [id number] Cosigned by: [id number] Paroxetine HCl (Paxil) 20 mg PO DAILY [facility] Stop: 08/07/19 08:59 Last Admin: 07/08/19 08:57 Dose: 20 mg Documented by: [id number] Valsartan (Diovan) 80 mg PO DAILY [facility] Stop: 08/07/19 08:59 Last Admin: 07/08/19 08:57 Dose: 80 mg Documented by: [id number] Coding Level of Care Code 10825 U Intl Hosp Care Lvl 3
[2019-07-08] MEDS: INSULIN REGULAR 250 UNITS in SODIUM CHLORIDE 0.9% 247.5 ML IV SCH (14:34)
--- NOTE | 2019-07-08 14:40 | Pharmacy Report ---
Glycemic Control Consultation - Date of Service July 08, 2019 - Scope Scope: Glycemic Pharmacist consulted by Dr Philippe on 07/07 for glycemic control and to write orders per [facility] inpatient glycemic control protocol - Objective Weight: 84.3 kg Accuchecks BSG (last 24hrs): 07/07/19 07/07/19 07/07/19 15:03 15:28 16:12 Glucose 427 H* POC Glucose 510 H* 367 H* 07/07/19 07/07/19 07/07/19 17:03 18:02 18:44 Glucose 247 H POC Glucose 340 H* 264 H 07/07/19 07/07/19 07/07/19 19:07 19:31 20:32 Glucose POC Glucose 207 H 219 H 242 H 07/07/19 07/07/19 07/07/19 21:29 22:33 23:16 Glucose 373 H* POC Glucose 269 H 339 H* 07/07/19 07/08/19 07/08/19 23:30 00:31 01:31 Glucose POC Glucose 325 H* 277 H 282 H 07/08/19 07/08/19 07/08/19 03:36 03:36 03:45 Glucose 156 H POC Glucose 149 H 131 H 07/08/19 07/08/19 07/08/19 05:56 07:00 07:02 Glucose 218 H POC Glucose 218 H 219 H 07/08/19 07/08/19 07/08/19 08:06 08:59 10:01 Glucose POC Glucose 225 H 332 H* 339 H* 07/08/19 07/08/19 07/08/19 11:00 11:53 11:55 Glucose 409 H* POC Glucose 359 H* 383 H* 07/08/19 07/08/19 07/08/19 12:56 12:56 13:55 Glucose POC Glucose 555 H* 557 H* 523 H* Laboratory Data (last 24hrs): 07/07/19 07/07/19 07/07/19 15:28 18:44 23:16 Potassium 4.4 D 4.1 4.5 Carbon Dioxide 25 31 31 Anion Gap 14.0 H 6.0 4.0 Creatinine 2.17 H D 1.88 H 1.76 H Est Cr Clr Drug Dosing 43.9 50.6 54.1 Beta-Hydroxybutyric Acd 73.68 H 7.22 H 07/08/19 07/08/19 07/08/19 03:36 07:02 11:53 Potassium 4.0 4.0 4.0 Carbon Dioxide 33 H 30 31 Anion Gap 1.0 L 4.0 4.0 Creatinine 1.54 H 1.49 H 1.57 H Est Cr Clr Drug Dosing 61.8 63.9 60.6 Beta-Hydroxybutyric Acd 3.68 H HbA1c: Hemoglobin A1c TNP 07/07/19 11:15 - Recent Pertinent Medications Outpatient Anti-diabetic Regimen: * n/a * A1c = send out lab / had spoke with lab and value outside of analyzer window Risk Factors for Insulin Resistance: * IVF: D5W in fluids for hypernatremia * Diet: T2DM - Assessment & Plan Assessment & Plan: ASSESSMENT: * 48 year old male prisoner presenting with DKA. BSGs in 700s prior to admission. Started on insulin drip per DKA/HHS protocol. Brought into ED s/p fall, confusion. Had tried to transition off insulin drip yesterday (15 units of Lantus given to help with transition), drip paused temporarily however this morning BSGs rising again therefore continued on insulin drip * Patient also with hypernatremia therefore IV fluids changed to D5W * Spoke with nurse this morning and patient still lethargic, confused - BSGs in upper 200s therefore drip continued * Provider did increase rate of ivf's to help with hypernatremia - therefore BSGs have trending up significantly with high dextrose iv rate at lunchtime * Added fixed carb coverage with drip as patient is now eating. More alert and oriented at lunch per nurse * Na trending down to 155 at lunch, therefore dextrose ivfs rate decreased down PLAN FOR INPATIENT GLYCEMIC CONTROL: * Recommend continuation of insulin drip until hypernatremia normalizes -insulin drip goal range adjusted to 140-200 -fixed carb ratio of 1 unit per every 9 grams of carbs * Please note that the plan above was derived based on current level of insulin resistance and hospital stress. These recommendations are appropriate for inpatient admission only. Plan of care upon discharge will need to be reassessed to avoid potential outpatient hypo/hyperglycemia. Thank you.
--- NOTE | 2019-07-08 15:20 | Billing Data ---
Date of Service July 08, 2019 Coding Level of Care Code 72211 Subseq Hosp Care Lvl 3
[2019-07-08 16:42] LABS: BUN Creatinine Ratio 18.8 (10-20); Calcium 8.5 mg/dl (8.5-10.1); Creatinine Clr Calc Pharmacy 64.7 ml/min; Est GFR (Non-African American) 55.2
[2019-07-08 17:17] LABS: Beta-Hydroxybutyrate 1.58 mg/dl (0.2-2.81)
[2019-07-08] MEDS: SODIUM CHLORIDE 0.9% 1000ML 1,000 ML IV SCH (17:20)
[2019-07-08 20:18] LABS: Calcium 8.4 mg/dl (8.5-10.1); Creatinine Clr Calc Pharmacy 63.4 ml/min; Est GFR (African American) 62.5; Est GFR (Non-African American) 53.9; Potassium 3.5 mmol/L (3.5-5.1)
[2019-07-08] MEDS ORDERED: INSULIN GLARGINE SOLOSTAR 100 UNITS/ML 3 ML PEN SC SCH (21:00)
[2019-07-08] MEDS ORDERED: cloZAPine 25 MG TAB PO SCH (21:00)
[2019-07-09] MEDS: INSULIN ASPART 100 UNITS/ML 3 ML PEN SC SCH ×7 (00:07→23:48)
[2019-07-09] MEDS: SODIUM CHLORIDE 0.9% 1000ML 1,000 ML IV SCH (00:09)
[2019-07-09 00:55] LABS: BUN Creatinine Ratio 21.3 (10-20); Calcium 8.2 mg/dl (8.5-10.1); Creatinine Clr Calc Pharmacy 80.7 ml/min; Est GFR (African American) 83.5; Potassium 3.2 mmol/L (3.5-5.1)
[2019-07-09] MEDS ORDERED: POTASSIUM CHLORIDE 20 MEQ TABCR PO ONE (01:17)
[2019-07-09] MEDS: SODIUM CHLOR 0.45% + 20MEQ KCL 20 MEQ/1,000 ML BAG IV SCH ×4 (01:38→23:47)
[2019-07-09 04:10] LABS: Basophils # (auto) 0.01 K/uL (0-0.2); Basophils % (auto) 0.2 %; Eosinophils # (auto) 0.22 K/uL (0-0.5); Eosinophils % (auto) 3.6 %; Hematocrit (blood only) 36.6 % (42-52); Immature Granulocytes # (auto) 0.01 K/uL (0.00-0.02); Immature Granulocytes % (auto) 0.2 %; Lymphocytes # (auto) 3.06 K/uL (1.2-3.4); Lymphocytes % (auto) 49.4 %; Mean Corpuscular Hemoglobin 25.4 pg (25-34); Mean Corpuscular Hgb Conc 32.8 g/dL (32-36); Mean Corpuscular Volume 77.4 fL (80-100); Mean Platelet Volume 10.9 fL (7.4-10.4); Monocytes # (auto) 0.43 K/uL (0.11-0.59); Monocytes % (auto) 6.9 %; Neutrophils # (auto) 2.46 K/uL (1.4-6.5); Neutrophils % (auto) 39.7 %; Platelet Count 160 K/uL (130-400); RDW Standard Deviation 42.2 fL (36.4-46.3); Red Blood Count 4.73 M/uL (4.7-6.1); White Blood Count 6.19 K/uL (4.8-10.8)
[2019-07-09 04:31] LABS: Albumin Level 2.9 gm/dl (3.4-5.0); BUN Creatinine Ratio 20.4 (10-20); Creatinine Clr Calc Pharmacy 82.8 ml/min; Est GFR (African American) 86.1; Est GFR (Non-African American) 74.3; Potassium 3.6 mmol/L (3.5-5.1)
[2019-07-09 04:38] LABS: Bilirubin,Total 0.7 mg/dl (0.2-1); Total Protein 5.9 gm/dl (6.4-8.2)
--- NOTE | 2019-07-09 07:54 | Hospitalist Progress Note ---
Date of Service July 09, 2019 Assessment & Plan (1) Diabetic ketoacidosis: 89 y/o M with PMH of hypertension, schizophrenia, who was brought to the emergency room status post fall and confusion in [place] [facility]; previously well controlled on antipsychotics and has had no changes to his medications DKA: - presented with glucose of 700, in the presence of ketoacidemia, and bicarb of 20 - no prior history of DM; ordered C-peptide for determination of baseline insulin production as source of DKA progression remains uncertain at this time - monitor potassium and electrolytes replenish as needed, currently receiving 20meq potassium in IV fluids - off insulin drip; receiving 15 units Lantus, and sliding scale for continued glucose management Hypernatremia: - Na on admission 155, trended down to 147 this AM; continuing to improve to 146 throughout the day - continue 1/2 NSS at 125ml/Hr - BMP every 4 hrs Schizphrenia: - continue home medicine clozapine 400 mg p.o. nightly, clozapine 50 mg p.o. daily - paroxetine 20 mg p.o. daily. - Psych consulted: appreciate recs Hypertension: - Continue home medicine amlodipine 10 mg p.o. daily, valsartan 80 mg p.o. daily. - hold chlorthalidone 25 mg at this time SULY: - on admission Cr. 1.8 trending down to 1.25 today - continue to monitor as hydration improves Diet: Carb consistent Code: Full code DVT ppx: heparin sq Supervising Physician Co-Signing Physician Notes Resident Physician Supervision Note: I interviewed and examined the patient. I agree with the gonzalez components of PGY1 Dr. Sean Yeboah's documentation. I discussed the case with the resident and agree with the findings and plan as documented in the note. Any exceptions or clarifications are listed here: patient reports he had lost 60-80 pounds of weight in the last 6-12 months (had been 260 pounds to his recollection prior to the weight loss). +polyuria, +polydipsia, +nocturia, +polyphagia for several months. During rounds today pt reported feeling well; denied any complaints. Denied pain in any location. No family h/o autoimmune diseases or T1DM. exam - gen - NAD psych - a/o x 3; no psychosis mouth - MM slightly dry heart - RRR, s1 s2 lungs - CTA b/l abd - soft NT ND BS+ ext - no edema BMP reviewed; Na level normalizing anion gap closed A/P: 1. new-onset DM - either T1DM vs "ROVERTO" - uncertain; c-peptide level had been sent to help clarify. Consider autoimmune ab testing (anti-insulin abx, GAD65 ab, islet cell ab, etc). Off insulin infusion; basal-bolus SC regimen begun; pharmacy assistance appreciated. 2. severe hypernatremic dehydration - improving; cont hypotonic fluids as already doing. Serial BMPs. 3. hypernatremia - had been severe; doubt DI but will check urine osm, urine Na, etc to rule out diabetes insipidus. If urine osm is not low then DI is absent. 4. metabolic encephalopathy - 2nd DKA - resolved. 5. DKA - resolved. 6. schizophrenia - at baseline; controlled; cont usual meds for such. 7. severe protein calorie malnutrition - 2nd to new-onset DM - this will improve now that he is on insulin and DM will be controlled. Documented By: Estuardo Hamilton MD Subjective Patient feels fine this morning; has continued to have the urge to pee while he is here but continues to feel closer to his normal than he was when he was at [facility]; has not had any increased thirst over night but does continue to drink fluids. Review of Systems Constitutional: no fever, no chills and no sweats Eyes: no diplopia and no spots in vision Ear, Nose, Mouth, Throat: no ear pain, no tinnitus, no hoarseness and no dysphagia Respiratory: no cough, no dyspnea and no wheezing Cardiovascular: no chest pain, no dyspnea and no orthopnea Gastrointestinal: no abdominal pain, no nausea and no vomiting Genitourinary: + urinary frequency; no dysuria and no difficulty urinating Neurologic: no falls, no localized weakness, no generalized weakness, no loss of sensation and no tingling Physical Exam Constitutional: well developed and well nourished Eyes: PERRL, conjunctivae normal, anicteric sclerae Respiratory: normal respiratory effort, lungs clear to auscultation Auscultation: no crackles, no rales and no wheezes Cardiovascular: Rate/Rhythm: regular rate and regular rhythm Heart Sounds: normal S1 and normal S2; no gallop, no murmur and no cardiac rub Gastrointestinal (Abdomen): normal bowel sounds, soft, nontender, no hepatosplenomegaly Skin: no rashes, warm and dry Results & Data Vital Signs (Past 12 Hours) Vital Signs Temp Pulse Pulse Pulse Resp BP Pulse Ox 07/09/19 03:48 36.4 C L 86 16 111/75 99 07/09/19 00:17 88 07/09/19 00:00 36.3 C L 89 17 107/72 95 Laboratory Results 07/09/19 07/09/19 07/09/19 Range/Units 12:04 11:58 11:29 WBC (4.8-10.8) K/uL RBC (4.7-6.1) M/uL Hgb (14.0-18.0) g/dL Hct (42-52) % MCV (80-100) fL MCH (25-34) pg MCHC (32-36) g/dL RDW Std Deviation (36.4-46.3) fL RDW Coeff of Dora (11.5-14.5) % Plt Count (130-400) K/uL MPV (7.4-10.4) fL Immature Gran % (Auto) % Neut % (Auto) % Lymph % (Auto) % Johnson % (Auto) % Eos % (Auto) % Baso % (Auto) % Immature Gran # (Auto) (0.00-0.02) K/uL Neut # (Auto) (1.4-6.5) K/uL Lymph # (Auto) (1.2-3.4) K/uL Johnson # (Auto) (0.11-0.59) K/uL Eos # (Auto) (0-0.5) K/uL Baso # (Auto) (0-0.2) K/uL Sodium 146 H (136-145) mmol/L Potassium 3.7 (3.5-5.1) mmol/L Chloride 114 H (98-107) mmol/L Carbon Dioxide 27 (21-32) mmol/L Anion Gap 5.0 (3-11) BUN 21 H (7-18) mg/dl Creatinine 1.25 (0.6-1.4) mg/dl Est Cr Clr Drug Dosing 76.1 ml/min Est GFR ( Amer) 77.9 Est GFR (Non-Af Amer) 67.2 BUN/Creatinine Ratio 16.8 (10-20) Glucose 315 H* (70-99) mg/dl POC Glucose 380 H* (70-99) Osmolality Pending Calcium 8.2 L (8.5-10.1) mg/dl Total Bilirubin (0.2-1) mg/dl AST (15-37) U/L ALT (12-78) U/L Alkaline Phosphatase (45-117) U/L Total Protein (6.4-8.2) gm/dl Albumin (3.4-5.0) gm/dl Globulin (2.5-4.0) gm/dl Albumin/Globulin Ratio (0.9-2) Beta-Hydroxybutyric Acd Pending (0.2-2.81) mg/dl Free T4 0.84 (0.8-1.6) ng/dl Miscellaneous Test 07/09/19 07/09/19 07/09/19 Range/Units 11:28 08:07 08:01 WBC (4.8-10.8) K/uL RBC (4.7-6.1) M/uL Hgb (14.0-18.0) g/dL Hct (42-52) % MCV (80-100) fL MCH (25-34) pg MCHC (32-36) g/dL RDW Std Deviation (36.4-46.3) fL RDW Coeff of Dora (11.5-14.5) % Plt Count (130-400) K/uL MPV (7.4-10.4) fL Immature Gran % (Auto) % Neut % (Auto) % Lymph % (Auto) % Johnson % (Auto) % Eos % (Auto) % Baso % (Auto) % Immature Gran # (Auto) (0.00-0.02) K/uL Neut # (Auto) (1.4-6.5) K/uL Lymph # (Auto) (1.2-3.4) K/uL Johnson # (Auto) (0.11-0.59) K/uL Eos # (Auto) (0-0.5) K/uL Baso # (Auto) (0-0.2) K/uL Sodium 147 H (136-145) mmol/L Potassium 3.9 (3.5-5.1) mmol/L Chloride 116 H (98-107) mmol/L Carbon Dioxide 29 (21-32) mmol/L Anion Gap 3.0 (3-11) BUN 22 H (7-18) mg/dl Creatinine 1.17 (0.6-1.4) mg/dl Est Cr Clr Drug Dosing 81.3 ml/min Est GFR ( Amer) 84.3 Est GFR (Non-Af Amer) 72.8 BUN/Creatinine Ratio 18.6 (10-20) Glucose 253 H (70-99) mg/dl POC Glucose 457 H* 261 H (70-99) Osmolality Calcium 8.0 L (8.5-10.1) mg/dl Total Bilirubin (0.2-1) mg/dl AST (15-37) U/L ALT (12-78) U/L Alkaline Phosphatase (45-117) U/L Total Protein (6.4-8.2) gm/dl Albumin (3.4-5.0) gm/dl Globulin (2.5-4.0) gm/dl Albumin/Globulin Ratio (0.9-2) Beta-Hydroxybutyric Acd (0.2-2.81) mg/dl Free T4 (0.8-1.6) ng/dl Miscellaneous Test 07/09/19 07/09/19 07/09/19 Range/Units 03:59 03:57 03:57 WBC 6.19 (4.8-10.8) K/uL RBC 4.73 (4.7-6.1) M/uL Hgb 12.0 L (14.0-18.0) g/dL Hct 36.6 L (42-52) % MCV 77.4 L (80-100) fL MCH 25.4 (25-34) pg MCHC 32.8 (32-36) g/dL RDW Std Deviation 42.2 (36.4-46.3) fL RDW Coeff of Dora 15.0 H (11.5-14.5) % Plt Count 160 (130-400) K/uL MPV 10.9 H (7.4-10.4) fL Immature Gran % (Auto) 0.2 % Neut % (Auto) 39.7 % Lymph % (Auto) 49.4 % Johnson % (Auto) 6.9 % Eos % (Auto) 3.6 % Baso % (Auto) 0.2 % Immature Gran # (Auto) 0.01 (0.00-0.02) K/uL Neut # (Auto) 2.46 (1.4-6.5) K/uL Lymph # (Auto) 3.06 (1.2-3.4) K/uL Johnson # (Auto) 0.43 (0.11-0.59) K/uL Eos # (Auto) 0.22 (0-0.5) K/uL Baso # (Auto) 0.01 (0-0.2) K/uL Sodium 150 H (136-145) mmol/L Potassium 3.6 (3.5-5.1) mmol/L Chloride 118 H (98-107) mmol/L Carbon Dioxide 26 (21-32) mmol/L Anion Gap 6.0 (3-11) BUN 23 H (7-18) mg/dl Creatinine 1.15 (0.6-1.4) mg/dl Est Cr Clr Drug Dosing 82.8 ml/min Est GFR ( Amer) 86.1 Est GFR (Non-Af Amer) 74.3 BUN/Creatinine Ratio 20.4 H (10-20) Glucose 220 H (70-99) mg/dl POC Glucose 231 H (70-99) Osmolality Calcium 8.0 L (8.5-10.1) mg/dl Total Bilirubin 0.7 (0.2-1) mg/dl AST 18 (15-37) U/L ALT 21 (12-78) U/L Alkaline Phosphatase 88 (45-117) U/L Total Protein 5.9 L (6.4-8.2) gm/dl Albumin 2.9 L (3.4-5.0) gm/dl Globulin 3.0 (2.5-4.0) gm/dl Albumin/Globulin Ratio 1.0 (0.9-2) Beta-Hydroxybutyric Acd (0.2-2.81) mg/dl Free T4 (0.8-1.6) ng/dl Miscellaneous Test 07/09/19 07/09/19 07/08/19 Range/Units 00:12 00:03 21:48 WBC (4.8-10.8) K/uL RBC (4.7-6.1) M/uL Hgb (14.0-18.0) g/dL Hct (42-52) % MCV (80-100) fL MCH (25-34) pg MCHC (32-36) g/dL RDW Std Deviation (36.4-46.3) fL RDW Coeff of Dora (11.5-14.5) % Plt Count (130-400) K/uL MPV (7.4-10.4) fL Immature Gran % (Auto) % Neut % (Auto) % Lymph % (Auto) % Johnson % (Auto) % Eos % (Auto) % Baso % (Auto) % Immature Gran # (Auto) (0.00-0.02) K/uL Neut # (Auto) (1.4-6.5) K/uL Lymph # (Auto) (1.2-3.4) K/uL Johnson # (Auto) (0.11-0.59) K/uL Eos # (Auto) (0-0.5) K/uL Baso # (Auto) (0-0.2) K/uL Sodium 151 H (136-145) mmol/L Potassium 3.2 L (3.5-5.1) mmol/L Chloride 119 H (98-107) mmol/L Carbon Dioxide 30 (21-32) mmol/L Anion Gap 2.0 L (3-11) BUN 25 H (7-18) mg/dl Creatinine 1.18 D (0.6-1.4) mg/dl Est Cr Clr Drug Dosing 80.7 ml/min Est GFR ( Amer) 83.5 Est GFR (Non-Af Amer) 72.0 BUN/Creatinine Ratio 21.3 H (10-20) Glucose 138 H (70-99) mg/dl POC Glucose 130 H 132 H (70-99) Osmolality Calcium 8.2 L (8.5-10.1) mg/dl Total Bilirubin (0.2-1) mg/dl AST (15-37) U/L ALT (12-78) U/L Alkaline Phosphatase (45-117) U/L Total Protein (6.4-8.2) gm/dl Albumin (3.4-5.0) gm/dl Globulin (2.5-4.0) gm/dl Albumin/Globulin Ratio (0.9-2) Beta-Hydroxybutyric Acd (0.2-2.81) mg/dl Free T4 (0.8-1.6) ng/dl Miscellaneous Test 07/08/19 07/08/19 07/08/19 Range/Units 21:00 20:07 19:41 WBC (4.8-10.8) K/uL RBC (4.7-6.1) M/uL Hgb (14.0-18.0) g/dL Hct (42-52) % MCV (80-100) fL MCH (25-34) pg MCHC (32-36) g/dL RDW Std Deviation (36.4-46.3) fL RDW Coeff of Dora (11.5-14.5) % Plt Count (130-400) K/uL MPV (7.4-10.4) fL Immature Gran % (Auto) % Neut % (Auto) % Lymph % (Auto) % Johnson % (Auto) % Eos % (Auto) % Baso % (Auto) % Immature Gran # (Auto) (0.00-0.02) K/uL Neut # (Auto) (1.4-6.5) K/uL Lymph # (Auto) (1.2-3.4) K/uL Johnson # (Auto) (0.11-0.59) K/uL Eos # (Auto) (0-0.5) K/uL Baso # (Auto) (0-0.2) K/uL Sodium 150 H (136-145) mmol/L Potassium 3.5 (3.5-5.1) mmol/L Chloride 119 H (98-107) mmol/L Carbon Dioxide 31 (21-32) mmol/L Anion Gap 0 L (3-11) BUN 27 H (7-18) mg/dl Creatinine 1.50 H (0.6-1.4) mg/dl Est Cr Clr Drug Dosing 63.4 ml/min Est GFR ( Amer) 62.5 Est GFR (Non-Af Amer) 53.9 BUN/Creatinine Ratio 18.0 (10-20) Glucose 174 H (70-99) mg/dl POC Glucose 168 H 176 H (70-99) Osmolality Calcium 8.4 L (8.5-10.1) mg/dl Total Bilirubin (0.2-1) mg/dl AST (15-37) U/L ALT (12-78) U/L Alkaline Phosphatase (45-117) U/L Total Protein (6.4-8.2) gm/dl Albumin (3.4-5.0) gm/dl Globulin (2.5-4.0) gm/dl Albumin/Globulin Ratio (0.9-2) Beta-Hydroxybutyric Acd (0.2-2.81) mg/dl Free T4 (0.8-1.6) ng/dl Miscellaneous Test 07/08/19 07/08/19 07/08/19 Range/Units 19:02 18:13 17:01 WBC (4.8-10.8) K/uL RBC (4.7-6.1) M/uL Hgb (14.0-18.0) g/dL Hct (42-52) % MCV (80-100) fL MCH (25-34) pg MCHC (32-36) g/dL RDW Std Deviation (36.4-46.3) fL RDW Coeff of Dora (11.5-14.5) % Plt Count (130-400) K/uL MPV (7.4-10.4) fL Immature Gran % (Auto) % Neut % (Auto) % Lymph % (Auto) % Johnson % (Auto) % Eos % (Auto) % Baso % (Auto) % Immature Gran # (Auto) (0.00-0.02) K/uL Neut # (Auto) (1.4-6.5) K/uL Lymph # (Auto) (1.2-3.4) K/uL Johnson # (Auto) (0.11-0.59) K/uL Eos # (Auto) (0-0.5) K/uL Baso # (Auto) (0-0.2) K/uL Sodium (136-145) mmol/L Potassium (3.5-5.1) mmol/L Chloride (98-107) mmol/L Carbon Dioxide (21-32) mmol/L Anion Gap (3-11) BUN (7-18) mg/dl Creatinine (0.6-1.4) mg/dl Est Cr Clr Drug Dosing ml/min Est GFR ( Amer) Est GFR (Non-Af Amer) BUN/Creatinine Ratio (10-20) Glucose (70-99) mg/dl POC Glucose 264 H 312 H* 373 H* (70-99) Osmolality Calcium (8.5-10.1) mg/dl Total Bilirubin (0.2-1) mg/dl AST (15-37) U/L ALT (12-78) U/L Alkaline Phosphatase (45-117) U/L Total Protein (6.4-8.2) gm/dl Albumin (3.4-5.0) gm/dl Globulin (2.5-4.0) gm/dl Albumin/Globulin Ratio (0.9-2) Beta-Hydroxybutyric Acd (0.2-2.81) mg/dl Free T4 (0.8-1.6) ng/dl Miscellaneous Test 07/08/19 07/08/19 07/08/19 Range/Units 15:57 15:54 14:55 WBC (4.8-10.8) K/uL RBC (4.7-6.1) M/uL Hgb (14.0-18.0) g/dL Hct (42-52) % MCV (80-100) fL MCH (25-34) pg MCHC (32-36) g/dL RDW Std Deviation (36.4-46.3) fL RDW Coeff of Dora (11.5-14.5) % Plt Count (130-400) K/uL MPV (7.4-10.4) fL Immature Gran % (Auto) % Neut % (Auto) % Lymph % (Auto) % Johnson % (Auto) % Eos % (Auto) % Baso % (Auto) % Immature Gran # (Auto) (0.00-0.02) K/uL Neut # (Auto) (1.4-6.5) K/uL Lymph # (Auto) (1.2-3.4) K/uL Johnson # (Auto) (0.11-0.59) K/uL Eos # (Auto) (0-0.5) K/uL Baso # (Auto) (0-0.2) K/uL Sodium 146 H D (136-145) mmol/L Potassium 4.0 (3.5-5.1) mmol/L Chloride 114 H (98-107) mmol/L Carbon Dioxide 30 (21-32) mmol/L Anion Gap 2.0 L (3-11) BUN 28 H (7-18) mg/dl Creatinine 1.47 H (0.6-1.4) mg/dl Est Cr Clr Drug Dosing 64.7 ml/min Est GFR ( Amer) 64.0 Est GFR (Non-Af Amer) 55.2 BUN/Creatinine Ratio 18.8 (10-20) Glucose 434 H* (70-99) mg/dl POC Glucose 450 H* 399 H* (70-99) Osmolality Calcium 8.5 (8.5-10.1) mg/dl Total Bilirubin (0.2-1) mg/dl AST (15-37) U/L ALT (12-78) U/L Alkaline Phosphatase (45-117) U/L Total Protein (6.4-8.2) gm/dl Albumin (3.4-5.0) gm/dl Globulin (2.5-4.0) gm/dl Albumin/Globulin Ratio (0.9-2) Beta-Hydroxybutyric Acd 1.58 (0.2-2.81) mg/dl Free T4 (0.8-1.6) ng/dl Miscellaneous Test 07/08/19 07/08/19 07/08/19 Range/Units 13:55 12:56 12:56 WBC (4.8-10.8) K/uL RBC (4.7-6.1) M/uL Hgb (14.0-18.0) g/dL Hct (42-52) % MCV (80-100) fL MCH (25-34) pg MCHC (32-36) g/dL RDW Std Deviation (36.4-46.3) fL RDW Coeff of Dora (11.5-14.5) % Plt Count (130-400) K/uL MPV (7.4-10.4) fL Immature Gran % (Auto) % Neut % (Auto) % Lymph % (Auto) % Johnson % (Auto) % Eos % (Auto) % Baso % (Auto) % Immature Gran # (Auto) (0.00-0.02) K/uL Neut # (Auto) (1.4-6.5) K/uL Lymph # (Auto) (1.2-3.4) K/uL Johnson # (Auto) (0.11-0.59) K/uL Eos # (Auto) (0-0.5) K/uL Baso # (Auto) (0-0.2) K/uL Sodium (136-145) mmol/L Potassium (3.5-5.1) mmol/L Chloride (98-107) mmol/L Carbon Dioxide (21-32) mmol/L Anion Gap (3-11) BUN (7-18) mg/dl Creatinine (0.6-1.4) mg/dl Est Cr Clr Drug Dosing ml/min Est GFR ( Amer) Est GFR (Non-Af Amer) BUN/Creatinine Ratio (10-20) Glucose (70-99) mg/dl POC Glucose 523 H* 557 H* 555 H* (70-99) Osmolality Calcium (8.5-10.1) mg/dl Total Bilirubin (0.2-1) mg/dl AST (15-37) U/L ALT (12-78) U/L Alkaline Phosphatase (45-117) U/L Total Protein (6.4-8.2) gm/dl Albumin (3.4-5.0) gm/dl Globulin (2.5-4.0) gm/dl Albumin/Globulin Ratio (0.9-2) Beta-Hydroxybutyric Acd (0.2-2.81) mg/dl Free T4 (0.8-1.6) ng/dl Miscellaneous Test 07/07/19 Range/Units 11:15 WBC (4.8-10.8) K/uL RBC (4.7-6.1) M/uL Hgb (14.0-18.0) g/dL Hct (42-52) % MCV (80-100) fL MCH (25-34) pg MCHC (32-36) g/dL RDW Std Deviation (36.4-46.3) fL RDW Coeff of Dora (11.5-14.5) % Plt Count (130-400) K/uL MPV (7.4-10.4) fL Immature Gran % (Auto) % Neut % (Auto) % Lymph % (Auto) % Johnson % (Auto) % Eos % (Auto) % Baso % (Auto) % Immature Gran # (Auto) (0.00-0.02) K/uL Neut # (Auto) (1.4-6.5) K/uL Lymph # (Auto) (1.2-3.4) K/uL Johnson # (Auto) (0.11-0.59) K/uL Eos # (Auto) (0-0.5) K/uL Baso # (Auto) (0-0.2) K/uL Sodium (136-145) mmol/L Potassium (3.5-5.1) mmol/L Chloride (98-107) mmol/L Carbon Dioxide (21-32) mmol/L Anion Gap (3-11) BUN (7-18) mg/dl Creatinine (0.6-1.4) mg/dl Est Cr Clr Drug Dosing ml/min Est GFR ( Amer) Est GFR (Non-Af Amer) BUN/Creatinine Ratio (10-20) Glucose (70-99) mg/dl POC Glucose (70-99) Osmolality Calcium (8.5-10.1) mg/dl Total Bilirubin (0.2-1) mg/dl AST (15-37) U/L ALT (12-78) U/L Alkaline Phosphatase (45-117) U/L Total Protein (6.4-8.2) gm/dl Albumin (3.4-5.0) gm/dl Globulin (2.5-4.0) gm/dl Albumin/Globulin Ratio (0.9-2) Beta-Hydroxybutyric Acd (0.2-2.81) mg/dl Free T4 (0.8-1.6) ng/dl Miscellaneous Test REPORT Medications Administered Current Inpatient Medications Acetaminophen (Tylenol) 650 mg PO Q4H PRN PRN Reason: Pain or Fever Stop: 08/06/19 15:09 Al Hydrox/Mg Hydrox/Simethicone (Maalox) 15 ml PO Q4H PRN PRN Reason: Dyspepsia Stop: 08/06/19 15:09 Amlodipine Besylate (Norvasc) 10 mg PO DAILY [facility] Stop: 08/07/19 08:59 Last Admin: 07/08/19 08:57 Dose: 10 mg Documented by: Clozapine (Clozaril) 50 mg PO DAILY [facility] Stop: 01/22/20 08:59 Last Admin: 07/08/19 08:57 Dose: 50 mg Documented by: Clozapine (Clozaril) 400 mg PO HS [facility] Stop: 08/07/19 20:59 Last Admin: 07/08/19 19:28 Dose: 400 mg Documented by: Dextrose (Dextrose 50%) 25 - 50 ml IV UD PRN; Protocol PRN Reason: Hypoglycemia Protocol Stop: 08/06/19 12:17 Glucagon (Glucagen) 1 mg SQ UD PRN; Protocol PRN Reason: Hypoglycemia Protocol Stop: 08/06/19 12:17 Glucose (Dex4 Glucose) 4 - 8 tabs PO UD PRN; Protocol PRN Reason: Hypoglycemia Protocol Stop: 08/06/19 12:17 Glucose (Glucose 40%) 15 - 30 gm PO UD PRN; Protocol PRN Reason: Hypoglycemia Protocol Stop: 08/06/19 12:17 Heparin Sodium (Porcine) (Heparin Sodium (Porcine)) 5,000 units SQ Q12 [facility] Stop: 08/07/19 08:59 Last Admin: 07/08/19 19:32 Dose: 5,000 units Documented by: Insulin Human Regular 250 (units/ Sodium Chloride) 250 mls @ 0 mls/hr IV .Q0M [facility]; Protocol Stop: 08/06/19 12:29 Last Titration: 07/08/19 22:00 Dose: 0 units/hr, 0 mls/hr Documented by: Sodium Chloride (Nss 1000ml) 1,000 mls @ 125 mls/hr IV .Q8H [facility] Stop: 08/07/19 17:14 Last Infusion: 07/09/19 01:34 Dose: 0 mls/hr Documented by: Potassium Chloride/Sodium Chloride (1/2 Nss + 20meq Kcl 1000ml) 20 meq in 1,000 mls @ 125 mls/hr IV .Q8H [facility] Stop: 08/08/19 01:29 Last Admin: 07/09/19 01:38 Dose: 125 mls/hr Documented by: Insulin Aspart (Novolog Flexpen) 0 units SC ACHS [facility] Stop: 08/06/19 20:59 Last Admin: 07/08/19 09:09 Dose: Not Given Documented by: Insulin Aspart (Novolog Flexpen) 0 units SC ACHS [facility] Stop: 08/07/19 07:29 Last Admin: 07/08/19 22:03 Dose: Not Given Documented by: Insulin Glargine (Lantus Solostar Pen) 15 units SC HS [facility]; Protocol Stop: 08/07/19 20:59 Last Admin: 07/08/19 22:04 Dose: 15 units Documented by: Magnesium Hydroxide (Milk Of Magnesia) 30 ml PO Q12H PRN PRN Reason: Constipation Stop: 08/06/19 15:09 Miscellaneous (Carbohydrates For Hypoglycemia) 15 - 30 gm PO UD PRN PRN Reason: Hypoglycemia Protocol Stop: 08/06/19 12:17 Miscellaneous (Pending Order) 1 ea N/A QS [facility] Stop: 08/08/19 20:29 Miscellaneous Information (Consult Glycemic Management Pharmacy) 1 ea N/A UD PRN; Protocol PRN Reason: Consult Stop: 08/06/19 15:19 Ondansetron HCl (Zofran) 4 mg IV Q6H PRN PRN Reason: Nausea Stop: 08/06/19 15:09 Paroxetine HCl (Paxil) 20 mg PO DAILY [facility] Stop: 08/07/19 08:59 Last Admin: 07/08/19 08:57 Dose: 20 mg Documented by: Polyethylene Glycol (Miralax Powder Packet) 17 gm PO DAILY PRN PRN Reason: Constipation Stop: 08/06/19 15:09 Valsartan (Diovan) 80 mg PO DAILY [facility] Stop: 08/07/19 08:59 Last Admin: 07/08/19 08:57 Dose: 80 mg Documented by: Resident Activity Tracking Resident Involvement: Resident Care Provided Care Provided: Adult Hospital Medicine (1) Diabetic ketoacidosis Diabetes mellitus complication detail: without coma Diabetes mellitus type: type 1 Qualified Code(s): E10.10 - Type 1 diabetes mellitus with ketoacidosis without coma
[2019-07-09] MEDS: VALSARTAN 80 MG TAB PO SCH (08:07)
[2019-07-09] MEDS: AMLODIPINE BESYLATE 5 MG TAB PO SCH (08:07)
[2019-07-09] MEDS: HEPARIN SOD 5,000 UNIT/0.5 ML VIAL SQ SCH ×2 (08:08→21:01)
[2019-07-09] MEDS: cloZAPine 25 MG TAB PO SCH (08:08)
[2019-07-09] MEDS: PARoxetine HCl 20 MG TAB PO SCH (08:08)
[2019-07-09 09:03] LABS: BUN Creatinine Ratio 18.6 (10-20); Creatinine Clr Calc Pharmacy 81.3 ml/min; Est GFR (African American) 84.3; Est GFR (Non-African American) 72.8; Potassium 3.9 mmol/L (3.5-5.1)
[2019-07-09] MEDS ORDERED: INSULIN ASPART 100 UNITS/ML 3 ML PEN SC SCH (11:30)
[2019-07-09] MEDS ORDERED: INSULIN HUMAN REGULAR PER UNIT 8 UNITS in SYRINGE 7.92 ML IV ONE (12:00)
[2019-07-09] MEDS ORDERED: INSULIN GLARGINE SOLOSTAR 100 UNITS/ML 3 ML PEN SC ONE (12:00)
[2019-07-09 12:30] LABS: BUN Creatinine Ratio 16.8 (10-20); Calcium 8.2 mg/dl (8.5-10.1); Creatinine Clr Calc Pharmacy 76.1 ml/min; Est GFR (African American) 77.9; Est GFR (Non-African American) 67.2; Potassium 3.7 mmol/L (3.5-5.1)
[2019-07-09 12:41] LABS: T4 Free Thyroxine 0.84 ng/dl (0.8-1.6)
[2019-07-09 12:48] LABS: Beta-Hydroxybutyrate 1.53 mg/dl (0.2-2.81)
--- NOTE | 2019-07-09 14:17 | Pharmacy Report ---
Pharmacy Glycemic Short Note 2 - Date of Service July 09, 2019 - Glycemic Short BSG Results (Last 24 hours): 07/08/19 07/08/19 07/08/19 14:55 15:54 15:57 Glucose 434 H* POC Glucose 399 H* 450 H* 07/08/19 07/08/19 07/08/19 17:01 18:13 19:02 Glucose POC Glucose 373 H* 312 H* 264 H 07/08/19 07/08/19 07/08/19 19:41 20:07 21:00 Glucose 174 H POC Glucose 176 H 168 H 07/08/19 07/09/19 07/09/19 21:48 00:03 00:12 Glucose 138 H POC Glucose 132 H 130 H 07/09/19 07/09/19 07/09/19 03:57 03:59 08:01 Glucose 220 H POC Glucose 231 H 261 H 07/09/19 07/09/19 07/09/19 08:07 11:28 11:29 Glucose 253 H POC Glucose 457 H* 380 H* 07/09/19 11:58 Glucose 315 H* POC Glucose ASSESSMENT: 07/09: * Insulin drip paused at 2200 last evening - BSGs 176-130 mg/dL * IVF's changed to 1/2 NS at 1600 yesterday - likely helped with improvement of blood sugars * Did receive 15 units of Lantus last night. BSG this at 0400 at 220 mg/dL - did tighten CR * BSG for breakfast at 261 - however nurse states patient was eating already, therefore value not accurate. Had her cover carbs only with breakfast * Lunchtime BSG trending up to 380 mg/dL - ordered 0.1 unit/kg iv insulin, tightened CR further. Feel that patient needs more basal coverage, added 8 units at lunch * Will add HS lantus scale for this evening PLAN FOR INPATIENT GLYCEMIC CONTROL: * Hold outpatient oral diabetes medications * Basal insulin * Lantus 8 units this AM * Lantus HS per scale -for bsg < 110 - give 8 units -for BSG 110-180 - give 15 units -for BSG greater than 180 - give 20 units * Bolus insulin * NovoLog per scale ACHS or Q6hrs while NPO * Goal Range: Low 140 mg/dL - High 180 mg/dL * Correction Factor: 25 mg/dL/unit * Nutritional / Prandial insulin per carb ratio of 1 unit per 7 grams CHO consumed PLAN FOR DISCHARGE: * TO BE DETERMINED
[2019-07-09 16:41] LABS: BUN Creatinine Ratio 17.5 (10-20); Calcium 7.8 mg/dl (8.5-10.1); Creatinine Clr Calc Pharmacy 73.2 ml/min; Est GFR (African American) 74.3; Est GFR (Non-African American) 64.1; Potassium 3.7 mmol/L (3.5-5.1)
[2019-07-09 20:28] LABS: BUN Creatinine Ratio 16.8 (10-20); Est GFR (African American) 66.7; Est GFR (Non-African American) 57.6; Potassium 3.9 mmol/L (3.5-5.1)
[2019-07-09] MEDS ORDERED: INSULIN GLARGINE SOLOSTAR 100 UNITS/ML 3 ML PEN SC SCH (21:00)
[2019-07-09] MEDS: cloZAPine 100 MG TAB PO SCH (21:01)
[2019-07-10 01:01] LABS: BUN Creatinine Ratio 17.2 (10-20); Calcium 7.9 mg/dl (8.5-10.1); Est GFR (African American) 82.6; Est GFR (Non-African American) 71.3; Potassium 3.6 mmol/L (3.5-5.1)
[2019-07-10] MEDS: INSULIN ASPART 100 UNITS/ML 3 ML PEN SC SCH ×5 (03:59→21:02)
[2019-07-10 04:08] LABS: Hematocrit (blood only) 34.6 % (42-52); Hemoglobin 11.2 g/dL (14.0-18.0); Mean Corpuscular Hemoglobin 25.1 pg (25-34); Mean Corpuscular Hgb Conc 32.4 g/dL (32-36); Mean Corpuscular Volume 77.4 fL (80-100); Mean Platelet Volume 11.1 fL (7.4-10.4); Platelet Count 150 K/uL (130-400); RDW Coefficient of Variation 14.7 % (11.5-14.5); RDW Standard Deviation 42.1 fL (36.4-46.3); Red Blood Count 4.47 M/uL (4.7-6.1); White Blood Count 4.43 K/uL (4.8-10.8)
[2019-07-10 04:28] LABS: Albumin Level 2.6 gm/dl (3.4-5.0); BUN Creatinine Ratio 16.7 (10-20); Calcium 7.9 mg/dl (8.5-10.1); Creatinine Clr Calc Pharmacy 88.9 ml/min; Est GFR (Non-African American) 81.1; Potassium 3.9 mmol/L (3.5-5.1)
[2019-07-10 04:30] LABS: Albumin Globulin Ratio 0.9 (0.9-2); Bilirubin,Total 0.4 mg/dl (0.2-1); Globulin 2.9 gm/dl (2.5-4.0); Total Protein 5.5 gm/dl (6.4-8.2)
[2019-07-10 04:54] LABS: Basophils # (auto) 0.02 K/uL (0-0.2); Basophils % (auto) 0.5 %; Eosinophils # (auto) 0.13 K/uL (0-0.5); Eosinophils % (auto) 2.9 %; Immature Granulocytes # (auto) 0.01 K/uL (0.00-0.02); Immature Granulocytes % (auto) 0.2 %; Lymphocytes # (auto) 2.69 K/uL (1.2-3.4); Lymphocytes % (auto) 60.7 %; Monocytes # (auto) 0.33 K/uL (0.11-0.59); Monocytes % (auto) 7.4 %; Neutrophils # (auto) 1.25 K/uL (1.4-6.5); Neutrophils % (auto) 28.3 %
[2019-07-10] MEDS: AMLODIPINE BESYLATE 5 MG TAB PO SCH (07:53)
[2019-07-10] MEDS: VALSARTAN 80 MG TAB PO SCH (07:53)
[2019-07-10] MEDS: PARoxetine HCl 20 MG TAB PO SCH (07:53)
[2019-07-10] MEDS: HEPARIN SOD 5,000 UNIT/0.5 ML VIAL SQ SCH ×2 (07:54→21:01)
[2019-07-10] MEDS: SODIUM CHLOR 0.45% + 20MEQ KCL 20 MEQ/1,000 ML BAG IV SCH (08:04)
[2019-07-10 08:44] LABS: BUN Creatinine Ratio 16.9 (10-20); Calcium 8.1 mg/dl (8.5-10.1); Creatinine Clr Calc Pharmacy 104.4 ml/min; Est GFR (African American) 103.2; Est GFR (Non-African American) 89.1; Potassium 4.1 mmol/L (3.5-5.1)
[2019-07-10] MEDS: cloZAPine 25 MG TAB PO SCH (10:07)
--- NOTE | 2019-07-10 10:35 | Hospitalist Progress Note ---
Date of Service July 10, 2019 Assessment & Plan (1) Diabetic ketoacidosis: 89 y/o M with PMH of hypertension, schizophrenia, who was brought to the emergency room status post fall and confusion in assisted; previously well controlled on antipsychotics and has had no changes to his medications DKA: - presented with glucose of 700, in the presence of ketoacidemia, and bicarb of 20 - no prior history of DM; ordered C-peptide for determination of baseline insulin production as source of DKA progression remains uncertain at this time - monitor potassium and electrolytes replenish as needed, currently receiving 20meq potassium in IV fluids - received Lantus 28u throughout the day yesterday, Aspart 39u - starting Metformin XR 500mg BID - upon discharge will likely need to be converted to Novolin N and Novolin R; as a start should receive Novolin R 5u TID w/ meals, and Novolin N 20u QAM w/ breakfast; this regimen is likely a low dosing regimen Hypernatremia: - Na on admission 155, trended down overnight; 146 this AM - continue 1/2 NSS at 125ml/Hr; will progress finish bag before discontinuing fluids and monitoring lytes overnight - BMP every 4 hrs Schizphrenia: - continue home medicine clozapine 400 mg p.o. nightly, clozapine 50 mg p.o. daily - paroxetine 20 mg p.o. daily. - Psych consulted: appreciate recs Hypertension: - Continue home medicine amlodipine 10 mg p.o. daily, valsartan 80 mg p.o. daily. - hold chlorthalidone 25 mg at this time SULY: - on admission Cr. 1.8 trending down to 1.25 today - continue to monitor as hydration improves Diet: Carb consistent Code: Full code DVT ppx: heparin sq Supervising Physician Co-Signing Physician Notes Resident Physician Supervision Note: I interviewed and examined the patient. I agree with the gonzalez components of PGY1 Dr. Sean Yeboah's documentation. I discussed the case with the resident and agree with the findings and plan as documented in the note. Any exceptions or clarifications are listed here: none. Pt feeling well today. Eating/drinking well. Tele normal. No complaints. exam - gen - NAD psych - a/o x 3; no psychosis mouth - MMM heart - RRR, s1 s2, no murmur lungs - CTA b/l abd - soft NT ND BS+ ext - no edema Na 143 this afternoon A/P: 1. new-onset DM - either T1DM vs "ROVERTO" - uncertain; c-peptide level had been sent to help clarify. Still pending. Consider autoimmune ab testing (anti- insulin abx, GAD65 ab, islet cell ab, etc). Off insulin infusion; basal-bolus SC regimen begun and being adjusted; pharmacy assistance appreciated. Lantus/novolog would be ideal but assisted system typically does not keep these on formulary. Will likely need to transition to Novolin-R and Novolin-N. Could consider metformin if DM is "ROVERTO" as opposed to T1DM. 2. severe hypernatremic dehydration - resolved; stop IVF. Can stop frequent lab checks; go to QA labs. 3. hypernatremia - resolved. Urine osm, etc not c/w diabetes insipidus. Hypernatremia was simply from severe dehydration. 4. metabolic encephalopathy - 2nd DKA - resolved. 5. DKA - resolved. 6. schizophrenia - at baseline; controlled; cont usual meds for such. 7. severe protein calorie malnutrition - 2nd to new-onset DM - this will improve. 8. microcytic anemia - at minimum would check iron studies. If these are normal consider outpatient hemoglobin electrophoresis to r/o thalaseemia. Anticipate d/c back to assisted 07/11. Documented By: Estuardo Hamilton MD Subjective Patient feels relatively unchanged this morning, has had continued increased bathroom trips since this started, but no longer has this "off" feeling he originally had when he fell at [facility]. Is trying to consistently avoid any forms of added sugar or salt as he does not want this to recur. Review of Systems Constitutional: no fever, no chills and no sweats Eyes: no diplopia and no spots in vision Respiratory: no cough, no dyspnea and no wheezing Cardiovascular: no chest pain, no palpitations and no edema Gastrointestinal: no abdominal pain, no nausea and no vomiting Genitourinary: + urinary frequency; no difficulty urinating Physical Exam Constitutional: well developed and well nourished Eyes: PERRL, conjunctivae normal, anicteric sclerae Respiratory: normal respiratory effort, lungs clear to auscultation Auscultation: no crackles, no rales and no wheezes Cardiovascular: Rate/Rhythm: regular rate and regular rhythm Heart Sounds: normal S1 and normal S2; no gallop, no murmur and no cardiac rub Gastrointestinal (Abdomen): normal bowel sounds, soft, nontender, no hepatosplenomegaly Skin: no rashes, warm and dry Results & Data Vital Signs (Past 12 Hours) Vital Signs Temp Pulse Pulse Pulse Resp BP Pulse Ox 07/10/19 07:17 36.7 C 73 19 104/71 99 07/10/19 03:38 36.4 C L 102 H 18 106/72 98 07/10/19 00:00 36.5 C 84 18 105/73 99 07/09/19 23:09 82 Laboratory Results 07/10/19 07/10/19 07/10/19 Range/Units 11:11 07:59 07:16 WBC (4.8-10.8) K/uL RBC (4.7-6.1) M/uL Hgb (14.0-18.0) g/dL Hct (42-52) % MCV (80-100) fL MCH (25-34) pg MCHC (32-36) g/dL RDW Std Deviation (36.4-46.3) fL RDW Coeff of Dora (11.5-14.5) % Plt Count (130-400) K/uL MPV (7.4-10.4) fL Immature Gran % (Auto) % Neut % (Auto) % Lymph % (Auto) % Fallon % (Auto) % Eos % (Auto) % Baso % (Auto) % Immature Gran # (Auto) (0.00-0.02) K/uL Neut # (Auto) (1.4-6.5) K/uL Lymph # (Auto) (1.2-3.4) K/uL Fallon # (Auto) (0.11-0.59) K/uL Eos # (Auto) (0-0.5) K/uL Baso # (Auto) (0-0.2) K/uL Sodium 146 H (136-145) mmol/L Potassium 4.1 (3.5-5.1) mmol/L Chloride 115 H (98-107) mmol/L Carbon Dioxide 29 (21-32) mmol/L Anion Gap 2.0 L (3-11) BUN 17 (7-18) mg/dl Creatinine 0.99 (0.6-1.4) mg/dl Est Cr Clr Drug Dosing 104.4 ml/min Est GFR ( Amer) 103.2 Est GFR (Non-Af Amer) 89.1 BUN/Creatinine Ratio 16.9 (10-20) Glucose 170 H (70-99) mg/dl POC Glucose 242 H 141 H (70-99) C-Peptide (0.80-3.85) ng/mL Osmolality (280-300) mOsm/kg Calcium 8.1 L (8.5-10.1) mg/dl Iron (35-175) mcg/dl Total Bilirubin (0.2-1) mg/dl AST (15-37) U/L ALT (12-78) U/L Alkaline Phosphatase (45-117) U/L Total Protein (6.4-8.2) gm/dl Albumin (3.4-5.0) gm/dl Globulin (2.5-4.0) gm/dl Albumin/Globulin Ratio (0.9-2) Beta-Hydroxybutyric Acd (0.2-2.81) mg/dl Free T4 (0.8-1.6) ng/dl Urine Osmolality (500-800) mOsm/kg 07/10/19 07/10/19 07/10/19 Range/Units 03:56 03:53 03:53 WBC 4.43 L (4.8-10.8) K/uL RBC 4.47 L (4.7-6.1) M/uL Hgb 11.2 L (14.0-18.0) g/dL Hct 34.6 L (42-52) % MCV 77.4 L (80-100) fL MCH 25.1 (25-34) pg MCHC 32.4 (32-36) g/dL RDW Std Deviation 42.1 (36.4-46.3) fL RDW Coeff of Dora 14.7 H (11.5-14.5) % Plt Count 150 (130-400) K/uL MPV 11.1 H (7.4-10.4) fL Immature Gran % (Auto) 0.2 % Neut % (Auto) 28.3 % Lymph % (Auto) 60.7 % Fallon % (Auto) 7.4 % Eos % (Auto) 2.9 % Baso % (Auto) 0.5 % Immature Gran # (Auto) 0.01 (0.00-0.02) K/uL Neut # (Auto) 1.25 L (1.4-6.5) K/uL Lymph # (Auto) 2.69 (1.2-3.4) K/uL Fallon # (Auto) 0.33 (0.11-0.59) K/uL Eos # (Auto) 0.13 (0-0.5) K/uL Baso # (Auto) 0.02 (0-0.2) K/uL Sodium 146 H (136-145) mmol/L Potassium 3.9 (3.5-5.1) mmol/L Chloride 116 H (98-107) mmol/L Carbon Dioxide 29 (21-32) mmol/L Anion Gap 1.0 L (3-11) BUN 18 (7-18) mg/dl Creatinine 1.07 (0.6-1.4) mg/dl Est Cr Clr Drug Dosing 88.9 ml/min Est GFR ( Amer) 94.0 Est GFR (Non-Af Amer) 81.1 BUN/Creatinine Ratio 16.7 (10-20) Glucose 131 H (70-99) mg/dl POC Glucose 114 H (70-99) C-Peptide (0.80-3.85) ng/mL Osmolality (280-300) mOsm/kg Calcium 7.9 L (8.5-10.1) mg/dl Iron (35-175) mcg/dl Total Bilirubin 0.4 (0.2-1) mg/dl AST 21 (15-37) U/L ALT 24 (12-78) U/L Alkaline Phosphatase 83 (45-117) U/L Total Protein 5.5 L (6.4-8.2) gm/dl Albumin 2.6 L (3.4-5.0) gm/dl Globulin 2.9 (2.5-4.0) gm/dl Albumin/Globulin Ratio 0.9 (0.9-2) Beta-Hydroxybutyric Acd (0.2-2.81) mg/dl Free T4 (0.8-1.6) ng/dl Urine Osmolality (500-800) mOsm/kg 07/10/19 07/09/19 07/09/19 Range/Units 00:16 23:38 20:06 WBC (4.8-10.8) K/uL RBC (4.7-6.1) M/uL Hgb (14.0-18.0) g/dL Hct (42-52) % MCV (80-100) fL MCH (25-34) pg MCHC (32-36) g/dL RDW Std Deviation (36.4-46.3) fL RDW Coeff of Dora (11.5-14.5) % Plt Count (130-400) K/uL MPV (7.4-10.4) fL Immature Gran % (Auto) % Neut % (Auto) % Lymph % (Auto) % Fallon % (Auto) % Eos % (Auto) % Baso % (Auto) % Immature Gran # (Auto) (0.00-0.02) K/uL Neut # (Auto) (1.4-6.5) K/uL Lymph # (Auto) (1.2-3.4) K/uL Fallon # (Auto) (0.11-0.59) K/uL Eos # (Auto) (0-0.5) K/uL Baso # (Auto) (0-0.2) K/uL Sodium 144 (136-145) mmol/L Potassium 3.6 (3.5-5.1) mmol/L Chloride 114 H (98-107) mmol/L Carbon Dioxide 28 (21-32) mmol/L Anion Gap 2.0 L (3-11) BUN 21 H (7-18) mg/dl Creatinine 1.19 (0.6-1.4) mg/dl Est Cr Clr Drug Dosing 80.0 ml/min Est GFR ( Amer) 82.6 Est GFR (Non-Af Amer) 71.3 BUN/Creatinine Ratio 17.2 (10-20) Glucose 175 H (70-99) mg/dl POC Glucose 189 H 241 H (70-99) C-Peptide (0.80-3.85) ng/mL Osmolality (280-300) mOsm/kg Calcium 7.9 L (8.5-10.1) mg/dl Iron (35-175) mcg/dl Total Bilirubin (0.2-1) mg/dl AST (15-37) U/L ALT (12-78) U/L Alkaline Phosphatase (45-117) U/L Total Protein (6.4-8.2) gm/dl Albumin (3.4-5.0) gm/dl Globulin (2.5-4.0) gm/dl Albumin/Globulin Ratio (0.9-2) Beta-Hydroxybutyric Acd (0.2-2.81) mg/dl Free T4 (0.8-1.6) ng/dl Urine Osmolality (500-800) mOsm/kg 07/09/19 07/09/19 07/09/19 Range/Units 19:48 16:05 16:05 WBC (4.8-10.8) K/uL RBC (4.7-6.1) M/uL Hgb (14.0-18.0) g/dL Hct (42-52) % MCV (80-100) fL MCH (25-34) pg MCHC (32-36) g/dL RDW Std Deviation (36.4-46.3) fL RDW Coeff of Dora (11.5-14.5) % Plt Count (130-400) K/uL MPV (7.4-10.4) fL Immature Gran % (Auto) % Neut % (Auto) % Lymph % (Auto) % Fallon % (Auto) % Eos % (Auto) % Baso % (Auto) % Immature Gran # (Auto) (0.00-0.02) K/uL Neut # (Auto) (1.4-6.5) K/uL Lymph # (Auto) (1.2-3.4) K/uL Fallon # (Auto) (0.11-0.59) K/uL Eos # (Auto) (0-0.5) K/uL Baso # (Auto) (0-0.2) K/uL Sodium 143 144 (136-145) mmol/L Potassium 3.9 3.7 (3.5-5.1) mmol/L Chloride 112 H 113 H (98-107) mmol/L Carbon Dioxide 27 28 (21-32) mmol/L Anion Gap 4.0 3.0 (3-11) BUN 24 H 23 H (7-18) mg/dl Creatinine 1.42 H 1.30 (0.6-1.4) mg/dl Est Cr Clr Drug Dosing 67.0 73.2 ml/min Est GFR ( Amer) 66.7 74.3 Est GFR (Non-Af Amer) 57.6 64.1 BUN/Creatinine Ratio 16.8 17.5 (10-20) Glucose 242 H 235 H (70-99) mg/dl POC Glucose 228 H (70-99) C-Peptide (0.80-3.85) ng/mL Osmolality (280-300) mOsm/kg Calcium 8.0 L 7.8 L (8.5-10.1) mg/dl Iron (35-175) mcg/dl Total Bilirubin (0.2-1) mg/dl AST (15-37) U/L ALT (12-78) U/L Alkaline Phosphatase (45-117) U/L Total Protein (6.4-8.2) gm/dl Albumin (3.4-5.0) gm/dl Globulin (2.5-4.0) gm/dl Albumin/Globulin Ratio (0.9-2) Beta-Hydroxybutyric Acd (0.2-2.81) mg/dl Free T4 (0.8-1.6) ng/dl Urine Osmolality (500-800) mOsm/kg 07/09/19 07/09/19 07/09/19 Range/Units 16:00 14:23 12:04 WBC (4.8-10.8) K/uL RBC (4.7-6.1) M/uL Hgb (14.0-18.0) g/dL Hct (42-52) % MCV (80-100) fL MCH (25-34) pg MCHC (32-36) g/dL RDW Std Deviation (36.4-46.3) fL RDW Coeff of Dora (11.5-14.5) % Plt Count (130-400) K/uL MPV (7.4-10.4) fL Immature Gran % (Auto) % Neut % (Auto) % Lymph % (Auto) % Fallon % (Auto) % Eos % (Auto) % Baso % (Auto) % Immature Gran # (Auto) (0.00-0.02) K/uL Neut # (Auto) (1.4-6.5) K/uL Lymph # (Auto) (1.2-3.4) K/uL Fallon # (Auto) (0.11-0.59) K/uL Eos # (Auto) (0-0.5) K/uL Baso # (Auto) (0-0.2) K/uL Sodium (136-145) mmol/L Potassium (3.5-5.1) mmol/L Chloride (98-107) mmol/L Carbon Dioxide (21-32) mmol/L Anion Gap (3-11) BUN (7-18) mg/dl Creatinine (0.6-1.4) mg/dl Est Cr Clr Drug Dosing ml/min Est GFR ( Amer) Est GFR (Non-Af Amer) BUN/Creatinine Ratio (10-20) Glucose (70-99) mg/dl POC Glucose 226 H (70-99) C-Peptide (0.80-3.85) ng/mL Osmolality (280-300) mOsm/kg Calcium (8.5-10.1) mg/dl Iron 137 (35-175) mcg/dl Total Bilirubin (0.2-1) mg/dl AST (15-37) U/L ALT (12-78) U/L Alkaline Phosphatase (45-117) U/L Total Protein (6.4-8.2) gm/dl Albumin (3.4-5.0) gm/dl Globulin (2.5-4.0) gm/dl Albumin/Globulin Ratio (0.9-2) Beta-Hydroxybutyric Acd (0.2-2.81) mg/dl Free T4 (0.8-1.6) ng/dl Urine Osmolality 566 (500-800) mOsm/kg 07/09/19 07/09/19 07/08/19 Range/Units 12:04 11:58 11:53 WBC (4.8-10.8) K/uL RBC (4.7-6.1) M/uL Hgb (14.0-18.0) g/dL Hct (42-52) % MCV (80-100) fL MCH (25-34) pg MCHC (32-36) g/dL RDW Std Deviation (36.4-46.3) fL RDW Coeff of Dora (11.5-14.5) % Plt Count (130-400) K/uL MPV (7.4-10.4) fL Immature Gran % (Auto) % Neut % (Auto) % Lymph % (Auto) % Fallon % (Auto) % Eos % (Auto) % Baso % (Auto) % Immature Gran # (Auto) (0.00-0.02) K/uL Neut # (Auto) (1.4-6.5) K/uL Lymph # (Auto) (1.2-3.4) K/uL Fallon # (Auto) (0.11-0.59) K/uL Eos # (Auto) (0-0.5) K/uL Baso # (Auto) (0-0.2) K/uL Sodium 146 H (136-145) mmol/L Potassium 3.7 (3.5-5.1) mmol/L Chloride 114 H (98-107) mmol/L Carbon Dioxide 27 (21-32) mmol/L Anion Gap 5.0 (3-11) BUN 21 H (7-18) mg/dl Creatinine 1.25 (0.6-1.4) mg/dl Est Cr Clr Drug Dosing 76.1 ml/min Est GFR ( Amer) 77.9 Est GFR (Non-Af Amer) 67.2 BUN/Creatinine Ratio 16.8 (10-20) Glucose 315 H* (70-99) mg/dl POC Glucose (70-99) C-Peptide 0.32 L (0.80-3.85) ng/mL Osmolality 322 H (280-300) mOsm/kg Calcium 8.2 L (8.5-10.1) mg/dl Iron (35-175) mcg/dl Total Bilirubin (0.2-1) mg/dl AST (15-37) U/L ALT (12-78) U/L Alkaline Phosphatase (45-117) U/L Total Protein (6.4-8.2) gm/dl Albumin (3.4-5.0) gm/dl Globulin (2.5-4.0) gm/dl Albumin/Globulin Ratio (0.9-2) Beta-Hydroxybutyric Acd 1.53 (0.2-2.81) mg/dl Free T4 0.84 (0.8-1.6) ng/dl Urine Osmolality (500-800) mOsm/kg Medications Administered Current Inpatient Medications Acetaminophen (Tylenol) 650 mg PO Q4H PRN PRN Reason: Pain or Fever Stop: 08/06/19 15:09 Al Hydrox/Mg Hydrox/Simethicone (Maalox) 15 ml PO Q4H PRN PRN Reason: Dyspepsia Stop: 08/06/19 15:09 Amlodipine Besylate (Norvasc) 10 mg PO DAILY DYLAN Stop: 08/07/19 08:59 Last Admin: 07/10/19 07:53 Dose: 10 mg Documented by: Clozapine (Clozaril) 50 mg PO DAILY DYLAN Stop: 08/07/19 08:59 Last Admin: 07/10/19 10:07 Dose: 50 mg Documented by: Clozapine (Clozapine) 400 mg PO HS DYLAN Stop: 08/08/19 20:59 Last Admin: 07/09/19 21:01 Dose: 400 mg Documented by: Dextrose (Dextrose 50%) 25 - 50 ml IV UD PRN; Protocol PRN Reason: Hypoglycemia Protocol Stop: 08/06/19 12:17 Glucagon (Glucagen) 1 mg SQ UD PRN; Protocol PRN Reason: Hypoglycemia Protocol Stop: 08/06/19 12:17 Glucose (Dex4 Glucose) 4 - 8 tabs PO UD PRN; Protocol PRN Reason: Hypoglycemia Protocol Stop: 08/06/19 12:17 Glucose (Glucose 40%) 15 - 30 gm PO UD PRN; Protocol PRN Reason: Hypoglycemia Protocol Stop: 08/06/19 12:17 Heparin Sodium (Porcine) (Heparin Sodium (Porcine)) 5,000 units SQ Q12 DYLAN Stop: 08/07/19 08:59 Last Admin: 07/10/19 07:54 Dose: 5,000 units Documented by: Insulin Human Regular 250 (units/ Sodium Chloride) 250 mls @ 0 mls/hr IV .Q0M [facility]; Protocol Stop: 08/06/19 12:29 Last Titration: 07/08/19 22:00 Dose: 0 units/hr, 0 mls/hr Documented by: Sodium Chloride (Nss 1000ml) 1,000 mls @ 125 mls/hr IV .Q8H [facility] Stop: 08/07/19 17:14 Last Infusion: 07/10/19 09:30 Dose: Infused Documented by: Potassium Chloride/Sodium Chloride (1/2 Nss + 20meq Kcl 1000ml) 20 meq in 1,000 mls @ 125 mls/hr IV .Q8H DYLAN Stop: 08/08/19 01:29 Last Admin: 07/10/19 08:04 Dose: 125 mls/hr Documented by: Insulin Aspart (Novolog Flexpen) 0 units SC ACHS DYLAN Stop: 08/08/19 08:29 Last Admin: 07/10/19 12:06 Dose: 10 units Documented by: Magnesium Hydroxide (Milk Of Magnesia) 30 ml PO Q12H PRN PRN Reason: Constipation Stop: 08/06/19 15:09 Miscellaneous (Carbohydrates For Hypoglycemia) 15 - 30 gm PO UD PRN PRN Reason: Hypoglycemia Protocol Stop: 08/06/19 12:17 Miscellaneous Information (Consult Glycemic Management Pharmacy) 1 ea N/A UD PRN; Protocol PRN Reason: Consult Stop: 08/06/19 15:19 Ondansetron HCl (Zofran) 4 mg IV Q6H PRN PRN Reason: Nausea Stop: 08/06/19 15:09 Paroxetine HCl (Paxil) 20 mg PO DAILY [facility] Stop: 08/07/19 08:59 Last Admin: 07/10/19 07:53 Dose: 20 mg Documented by: Polyethylene Glycol (Miralax Powder Packet) 17 gm PO DAILY PRN PRN Reason: Constipation Stop: 08/06/19 15:09 Valsartan (Diovan) 80 mg PO DAILY [facility] Stop: 08/07/19 08:59 Last Admin: 07/10/19 07:53 Dose: 80 mg Documented by: Resident Activity Tracking Resident Involvement: Resident Care Provided Care Provided: Adult Hospital Medicine (1) Diabetic ketoacidosis Diabetes mellitus complication detail: without coma Diabetes mellitus type: type 1 Qualified Code(s): E10.10 - Type 1 diabetes mellitus with ketoacidosis without coma
[2019-07-10] MEDS ORDERED: INSULIN GLARGINE SOLOSTAR 100 UNITS/ML 3 ML PEN SC STA (11:59)
--- NOTE | 2019-07-10 12:07 | Pharmacy Report ---
Pharmacy Glycemic Short Note 2 - Date of Service July 10, 2019 - Glycemic Short BSG Results (Last 24 hours): 07/09/19 07/09/19 07/09/19 11:58 14:23 16:05 Glucose 315 H* 235 H POC Glucose 226 H 07/09/19 07/09/19 07/09/19 16:05 19:48 20:06 Glucose 242 H POC Glucose 228 H 241 H 07/09/19 07/10/19 07/10/19 23:38 00:16 03:53 Glucose 175 H 131 H POC Glucose 189 H 07/10/19 07/10/19 07/10/19 03:56 07:16 07:59 Glucose 170 H POC Glucose 114 H 141 H 07/10/19 11:11 Glucose POC Glucose 242 H ASSESSMENT: BSGs improved today. Pt has received a lot of insulin over the previous 3 days. I worry about a potential low in the future. We will provide lantus 22u X1 this afternoon rather than repeated basal doses that may cause insulin stacking. A1C still pending as a lab send out. Dextrose containing fluids d/c'd. Clozapine continues. Diet continues. Spoke with lab, A1C is most likely >16.9%. BSGs in the 200s are permissible. I would hesitate to correct his A1C too quickly. PLAN FOR INPATIENT GLYCEMIC CONTROL: * Basal insulin * as above * Bolus insulin * NovoLog per scale ACHS or Q6hrs while NPO * Goal Range: Low 140 mg/dL - High 180 mg/dL * Correction Factor: 25 mg/dL/unit * Nutritional / Prandial insulin per carb ratio of 1 unit per 7 grams CHO consumed PLAN FOR DISCHARGE: * TO BE DETERMINED
[2019-07-10 16:28] LABS: BUN Creatinine Ratio 14.1 (10-20); Calcium 7.8 mg/dl (8.5-10.1); Creatinine Clr Calc Pharmacy 93.9 ml/min; Est GFR (African American) 90.9; Est GFR (Non-African American) 78.4; Potassium 4.2 mmol/L (3.5-5.1)
[2019-07-10] MEDS: METFORMIN HCL ER 500 MG TABCR PO SCH (17:19)
[2019-07-10 20:22] LABS: BUN Creatinine Ratio 15.1 (10-20); Creatinine Clr Calc Pharmacy 92.2 ml/min; Est GFR (African American) 88.9; Est GFR (Non-African American) 76.7; Potassium 4.2 mmol/L (3.5-5.1)
--- NOTE | 2019-07-10 20:34 | Billing Data ---
Date of Service July 10, 2019 Coding Level of Care Code 13229 Subseq Hosp Care Lvl 2
--- NOTE | 2019-07-10 20:34 | Billing Data ---
Date of Service July 09, 2019 Coding Level of Care Code 72492 Subseq Hosp Care Lvl 2
[2019-07-10] MEDS: cloZAPine 100 MG TAB PO SCH (21:01)
[2019-07-11 00:55] LABS: BUN Creatinine Ratio 15.9 (10-20); Calcium 7.7 mg/dl (8.5-10.1); Creatinine Clr Calc Pharmacy 105.4 ml/min; Est GFR (African American) 104.5; Est GFR (Non-African American) 90.2; Potassium 3.9 mmol/L (3.5-5.1)
[2019-07-11 04:36] LABS: Hemoglobin 11.3 g/dL (14.0-18.0); Mean Corpuscular Hgb Conc 32.3 g/dL (32-36); Mean Corpuscular Volume 77.4 fL (80-100); Mean Platelet Volume 10.4 fL (7.4-10.4); Platelet Count 131 K/uL (130-400); RDW Coefficient of Variation 14.7 % (11.5-14.5); RDW Standard Deviation 41.9 fL (36.4-46.3); Red Blood Count 4.52 M/uL (4.7-6.1); White Blood Count 3.63 K/uL (4.8-10.8)
[2019-07-11 04:58] LABS: BUN Creatinine Ratio 14.1 (10-20); Calcium 7.9 mg/dl (8.5-10.1); Creatinine Clr Calc Pharmacy 105.4 ml/min; Est GFR (African American) 104.5; Est GFR (Non-African American) 90.2; Potassium 4.2 mmol/L (3.5-5.1)
[2019-07-11 05:30] LABS: Basophils # (auto) 0.02 K/uL (0-0.2); Basophils % (auto) 0.6 %; Eosinophils # (auto) 0.13 K/uL (0-0.5); Eosinophils % (auto) 3.6 %; Giant Platelets 2+; Immature Granulocytes # (auto) 0.01 K/uL (0.00-0.02); Immature Granulocytes % (auto) 0.3 %; Lymphocytes # (auto) 2.08 K/uL (1.2-3.4); Lymphocytes % (auto) 57.3 %; Monocytes # (auto) 0.28 K/uL (0.11-0.59); Monocytes % (auto) 7.7 %; Neutrophils # (auto) 1.11 K/uL (1.4-6.5); Neutrophils % (auto) 30.5 %
[2019-07-11] MEDS: cloZAPine 25 MG TAB PO SCH (07:59)
[2019-07-11] MEDS: VALSARTAN 80 MG TAB PO SCH (07:59)
[2019-07-11] MEDS: AMLODIPINE BESYLATE 5 MG TAB PO SCH (07:59)
[2019-07-11] MEDS: INSULIN ASPART 100 UNITS/ML 3 ML PEN SC SCH ×2 (08:00→12:07)
[2019-07-11] MEDS: METFORMIN HCL ER 500 MG TABCR PO SCH (08:00)
[2019-07-11] MEDS: PARoxetine HCl 20 MG TAB PO SCH (08:01)
[2019-07-11] MEDS: HEPARIN SOD 5,000 UNIT/0.5 ML VIAL SQ SCH (08:03)
[2019-07-11 08:33] LABS: BUN Creatinine Ratio 12.5 (10-20); Calcium 8.4 mg/dl (8.5-10.1); Creatinine Clr Calc Pharmacy 101.1 ml/min; Est GFR (African American) 99.6; Est GFR (Non-African American) 85.9; Potassium 4.1 mmol/L (3.5-5.1)
[2019-07-11] MEDS ORDERED: INSULIN GLARGINE SOLOSTAR 100 UNITS/ML 3 ML PEN SC SCH (09:00)
--- NOTE | 2019-07-11 09:12 | Discharge Summary ---
Date of Service July 11, 2019 Admission HPI Per Admitting Provider Jerel Jeter is a 48-year-old male who is an inmate transferred from [facility] for reports of confusion, having had blood glucose greater than 700 prior to ED presentation. Psychiatric consultation was requested to evaluate patient for "schizophrenia." Progress note suggesting continued auditory hallucinations and confusion. There was also reported inquiry if clozapine may be contributing to patient's DKA presentation. Current medication list was requested from correctional facility, with clozapine dosing confirmed to be 50 mg each morning and 400 mg at bedtime. Patient is also reportedly taking pa roxetine 20 mg daily. Patient is cooperative with psychiatric evaluation, though responses to questions are rather concrete and somewhat limited. Patient states the reason for his admission is that he "fell out of my bed and hit my head twice." Patient does verbalize a history of "paranoid schizophrenia", which he states he was diagnosed with in his late 20s. Patient was asked to explain the behaviors that led to this diagnosis, to which he states "there were times where I was becoming more violent." Patient is unable to productively elaborate on this thought despite additional questions. Patient does indicate that his mood has been "good." He does admit to concern related to clozapine, that his only concern related to clozapine is increased appetite. Patient denies auditory hallucinations and paranoia, denying the presence of these even earlier in life. He denies current safety concerns during this hospitalization, as well as at the correctional facility. Patient states that he believes he has been on clozapine for over 20 years, and does not believe that any recent adjustments were made to the medication. Patient does indicate a history of inpatient psychiatric treatments, but states these were "a long time ago." He is unable to elaborate on what these admissions were related to. Patient states that he had previously received haloperidol to manage his psychiatric symptoms; however, he states that he responded to this medication by "getting stuck", indicating that physically he "could not move." Patient states that he is seen routinely by the behavioral health treatment team at [facility], and does not believe that there have been any recent concerns. Patient denies any family history of mental health illnesses. He denies suicidal or homicidal ideation, a nd other acute concerns at this time. Principal Diagnosis Diabetic ketoacidosis Discharge Exam Constitutional well developed and well nourished Eyes PERRL, conjunctivae normal, anicteric sclerae Respiratory normal respiratory effort, lungs clear to auscultation Auscultation: no crackles, no rales and no wheezes Cardiovascular Rate/Rhythm: regular rate and regular rhythm Heart Sounds: normal S1 and normal S2; no gallop, no murmur and no cardiac rub Gastrointestinal (Abdomen) normal bowel sounds, soft, nontender, no hepatosplenomegaly Skin no rashes, warm and dry Discharge Data Allergies Allergy/AdvReac Type Severity Reaction Status Date / Time Penicillins Allergy Unknown Unknown Unverified 07/07/19 11:49 Consultations 07/07/19 13:02 ED Decision to Admit Stat 07/07/19 23:42 Consult Psychiatry Routine Ordered Studies 07/07/19 13:55 CT head/brain wo con Stat Hospital Course (1) Diabetic ketoacidosis: 89 y/o M with PMH of hypertension, schizophrenia, who was brought to the emergency room status post fall and confusion in skilled nursing; previously well controlled on antipsychotics and has had no changes to his medications DKA: - presented with glucose of 700, in the presence of ketoacidemia, and bicarb of 20; no prior history of DM - A1c un-measureable on our labs, had to be sent out as exceeded 16.9 (max limit of our lab); C-peptide 0.32 - combination of these two findings in the setting of patient's overall presentation likely means 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 nightly, clozapine 50 mg p.o. daily - continue paroxetine 20 mg p.o. daily. Hypertension: - Continue home medicine amlodipine 10 mg p.o. daily, valsartan 80 mg p.o. daily. - stop chlorthalidone 25 mg at this time, as this will expedite the dehydration process and his blood pressure has been well controlled while in the hospital without the medication. SULY: - on admission Cr. 1.8; resolved prior to discharge Diet: Carb consistent Code: Full code DVT ppx: heparin sq Total Time Total Time Spent Total Time Spent (In Minutes): <30 Discharge Plan Discharge Items Patient Disposition: Home - Self-Care Reason For Visit: fall, diabetic ketoacidosis Discharge Diagnosis: Diabetic ketoacidosis Activity: Per Instructions section Non-emergency contact: Primary Care Provider Call non-emergency contact if: your symptoms worsen [facility] - Diet: Carb Consistent or DM2 Addtl Attending Provider Instructions: You were admitted following having a fall, and increased urination and subsequent dehydration; during this admission you were discovered to have a largely elevated sugar amount in your blood, and this required a large amount of rehydration to correct. The tests that we conducted to determine the source of your elevated glucose demonstrated that you do not produce a large amount of insulin on your own, and additionally indicated that your blood sugars have likely been sitting very high for a long period of time. As a result of these tests, you were started on Insulin and metformin for the balance of your blood sugars. You will continue these medications now that you are being discharged from the hospital. You should continue to take 500mg of Metformin twice a day every day; additionally, you will be taking 20 units of the long acting insulin (Lantus) once a day with breakfast, as you continue to monitor your blood sugars while at [facility], you will likely receive an additional amount of short acting insulin (Novolin R) at first this will be 5 units up to three times a day with meals but this can be changed over time to m eet the amount of sugars and carbohydrates that you take in with meals on a daily basis. In one week, you should have your blood checked again for what is called a basic metabolic profile, this is to check how you are continuing to stay hydrated now that you will tasked with maintaining your hydration on your own outside of the hospital. Pending Studies at Discharge: No Stand-Alone Forms: My [facility] [employer], Smoking Cessation Medications and DC Order Prescriptions: New metformin 500 mg Tablet Extended Release 24 Hr 500 mg PO BIDM 30 Days Qty: 60 RF: 0 Lantus Solostar U-100 Insulin 100 unit/mL (3 mL) insulin pen 20 units SQ DAILY 30 Days Qty: 6 RF: 0 Novolin R Regular U-100 Insuln 100 unit/mL solution 5 units SQ TID 30 Days Qty: 4.5 RF: 0 Continued valsartan 80 mg Tablet 80 mg PO DAILY RF: 0 amlodipine 10 mg Tablet 10 mg PO DAILY RF: 0 paroxetine HCl 20 mg Tablet 20 mg PO DAILY RF: 0 omeprazole 20 mg Capsule,Delayed Release(Dr/Ec) 20 mg PO DAILY RF: 0 clozapine 50 mg Tablet 50 mg PO DAILY RF: 0 clozapine 200 mg Tablet 400 mg PO HS RF: 0 Discontinued chlorthalidone 25 mg Tablet 25 mg PO DAILY RF: 0 Discharge Orders: Discharge Order (Routine); Ordered 07/11/19 Ordered By: Sean Yeboah Admission Data Admit Date/Time: 07/07/19 14:22 Attending Provider: Philip Augustine Admit Provider: Armando Philippe Primary Care Provider: Jessica DUKE Other Providers: Armando Philippe ; Paris Seals ; Estuardo Hamilton Other Interventions: Discharge Summary Assessment (RN) Last Done: 07/11/19 15:36 DC Date/Time DO NOT enter until pt leaves facility: 07/11/19 15:36 Supervising Physician Co-Signing Physician Notes Resident Physician Supervision Note: I personally examined the patient and verified all gonzalez points of history and exam, discussed case, and agree with decision making with Dr Yeboah. feeling better doing well no complaints. Dr Yeboah d/w skilled nursing medical team. vitals noted nad heent nc at mmm breathing unlabored no accessory muscles good effort no focal neuro deficits. A/P: 1. new-onset DM - either T1DM vs "ROVERTO" - uncertain; c-peptide level low implying insulin deficiency at least a significant part of the picture. Treat empirically for now. Consider autoimmune ab testing (anti-insulin abx, GAD65 ab, islet cell ab, etc). stable for return to skilled nursing - continue to adjust insulins - but glucose control reasonable for now - can continue to titrate. due to clinical suspicion of insulin resistance as well - trial of metformin. 2. severe hypernatremic dehydration - resolved; outpt f/u. 3. hypernatremia - resolved. Urine osm, etc not c/w diabetes insipidus. Hypernatremia was simply from severe dehydration. 4. metabolic encephalopathy - 2nd DKA - resolved. 5. DKA - resolved. 6. schizophrenia - at baseline; controlled; cont usual meds for such. (although concern is that clozaril may be at least in part culprit for his DM, the fact that mentallly he seems under reasonable control appears to make treating side effects at this point more beneficial than throwing his mental status into disarray.) 7. severe protein calorie malnutrition - 2nd to new-onset DM - this will improve. 8. microcytic anemia - spot check of iron normal at 137. check full iron studies once at baseline for longer. consider colo given age near 49. all stable for outpt f/u in this regard. Resident Activity Tracking Resident Involvement: Resident Care Provided Care Provided: Adult Hospital Medicine
[2019-07-11 12:45] LABS: BUN Creatinine Ratio 12.9 (10-20); Calcium 8.3 mg/dl (8.5-10.1); Creatinine Clr Calc Pharmacy 103.1 ml/min
--- NOTE | 2019-07-11 16:40 | Billing Data ---
Date of Service July 11, 2019 Coding Level of Care Code D/C Day Management <30 mins
[2019-07-12 16:23] LABS: Clozapine 377 mcg/L; Norclozapine 175 mcg/L (25-400)
== END 2019-07-11 15:36 | disposition home or self-care (01) | DRG 637 ==
LOC: ED 10:53 → SUATTDRO 14:22 → 2S 14:22